=== PATIENT | female | born 1950 | race Caucasian/White ===

== ENCOUNTER 2019-06-19 18:38 | Observation (INO) | payer MEDICARE, SELFPAY ==
--- NOTE | ~2019-06-19 | CT_ITS ---
EXAMINATION: CT brain wo con DATE: 06/19/2019 20:39 INDICATION: Seizure TECHNIQUE: Computed tomography (CT) of the head was performed without intravenous contrast. Sagittal and coronal reconstructions were performed. The mA was adjusted according to patient size. Iterative reconstruction technique was employed. The dose-length product was 605.33 mGy-cm. COMPARISON: head CT dated 10/01/2017 FINDINGS: No acute intracranial hemorrhage, acute infarction or abnormal extra axial fluid collection. Ventricl es are normal and symmetric. No mass/mass effect. Changes of bilateral intraocular lens replacement. The orbits, paranasal sinuses and mastoid air cells are normal. Hyperostosis frontalis. IMPRESSION: 1. No acute intracranial process. Reviewed, dictated and finalized at location A. TAL WATCH ASSEMBLER
--- NOTE | ~2019-06-19 | CT_ITS ---
EXAMINATION: CT abdomen pelvis w con DATE: 06/19/2019 21:41 INDICATION: Elevated liver function tests. TECHNIQUE: Computed tomography (CT) of the abdomen and pelvis was performed with 100 mL Omnipaque-350 intravenous contrast. Automated exposure control and iterative reconstruction technique were employe d. The dose-length product was 522.13 mGy-cm. COMPARISON: 08/27/2015 FINDINGS: Minimal dependent atelectasis in the bilateral lower lobes. Heart size is normal. No pericardial or p leural effusion. Small to moderate sized sliding-type hiatal hernia. Focal hepatic steatosis at the l igamentum teres. No intra or extrahepatic biliary ductal dilation. Gallbladder, spleen and bilateral adrenal glands are normal. Mild fatty atrophy of the pancreas. 7.8 cm cyst in the mid right kidney. 1 -2 mm nonobstructing stone at the upper pole calyx of the right kidney. There are couple additional t iny less than 5 mm cyst at the upper poles of both kidneys. Mild sigmoid diverticulosis without adjac ent inflammatory change to suggest diverticulitis. No bowel obstruction or abnormal bowel wall thicke tamar. Likely tiny normal appendix. No pericecal inflammatory stranding to suggest acute appendicitis. Bladder, anteverted uterus and bilateral adnexa are normal. No free intraperitoneal gas or fluid. No pathologically enlarged abdominal or pelvic lymphadenopathy. Moderate to severe lumbar spondylosis. IMPRESSION: 1. One-2 mm nonobstructing right renal stone. 2. Mild sigmoid diverticulosis. Reviewed, dictated and finalized at location A. ER FACTORY WORKER
--- NOTE | ~2019-06-19 | MR_ITS ---
EXAMINATION: MR brain/brain stem wo/w con EXAM DATE: 06/20/2019 19:07 INDICATION: Altered mental status, movement disorder. TECHNIQUE: Magnetic resonance imaging (MRI) of the brain/brain stem obtained without contrast. Sagit eliazar T1, axial diffusion, gradient echo (T2*), T1, T2, FLAIR sequences obtained. Patient was then inj ected with 15 cc intravenous Multihance contrast. Axial and coronal postcontrast T1 weighted sequence s obtained. There is no prior study for comparison. FINDINGS: There are no areas of restricted diffusion to suggest acute infarction. There is no acute hemorrhage seen on the T2*, a hemosiderin sensitive sequence. No intraparenchymal brain mass lesion. Hyperostosis frontalis. There is periventricular and subcortical T2/FLAIR signal hyperintensity, n onspecific but probably related to small vessel ischemic disease (microangiopathy). There is promin ence of the sulci and ventricles related to cerebral atrophy. There are no extra-axial collections. Flow voids are seen in the cerebral arteries on the T2-weighted sequences consistent with their exp ected patency. The orbits are unremarkable. Soft tissue is unremarkable. IMPRESSION: 1. No acute intracranial findings. 2. Chronic age related findings. Reviewed, dictated and finalized at location A. ICATIONS ENGINEERING MANAGER
--- NOTE | ~2019-06-19 | XR_ITS ---
EXAMINATION: XR chest 2V DATE: 06/19/2019 20:51 INDICATION: Possible seizure presenting with transient alteration of awareness and involuntary shakin g TECHNIQUE: frontal and lateral views of the chest were obtained. COMPARISON: Chest radiograph dated 06/17/2017 FINDINGS: No significant change in opacities at the left lung base corresponding to a small left paracardial fa t pad and a small to moderate-sized hiatal hernia. No new airspace opacities, pulmonary edema, pleura l effusion or pneumothorax. Heart size is normal. Mild thoracic spondylosis. Chronic nonunited left c lavicle fracture. IMPRESSION: 1. No acute cardiopulmonary disease. 2. Small to moderate-sized hiatal hernia. Reviewed, dictated and finalized at location A. MASON
[2019-06-19 18:50] VITALS: BP 101/75; PULSE 119; RESP 22; TEMP 36.9; O2SAT 98
[2019-06-19 19:00] VITALS: BP 144/69; PULSE 105; RESP 21; O2SAT 99
--- NOTE | 2019-06-19 19:08 | ED.NEUROSD ---
HPI - Neuro Symptoms/Deficit General Chief Complaint: Neuro Symptoms/Deficit Stated Complaint: focal seizure Time Seen by Provider: 06/19/19 18:50 Source: patient and family Mode of arrival: EMS Limitations: clinical condition History of Present Illness HPI Narrative: A 69 y/o female pt presents to the ED, via EMS from home, with c/o suspected seizures. Pt's family states she called EMS because she noticed pt having seizure-like activity and being more confused than normal. Pt's family member states she was last at the pt's home in March and her house was clean, but when she returned for her routine visit today she notes patients home being unlivable d/t clogged toilets, dirty dishes, and trash scattered throughout the home. Family notes that upon her arrival to the pt's home, pt was confused, and was not oriented to date or time. Family states that she is unsure what the pt's normal seizure activity is, but notes that the pt does have a Hx of seizures. Family adds that the pt does have several children, but they live out of town and she is not able to get ahold of anyone with any information of her PMHx at this time. Pt states that she is unsure if she has had seizures in the past and denies taking any medications for her seizures. She states that she has difficulty standing up, but denies hitting her head recently. Pt states that the blue dye to her hands is d/t draino, and notes that the lacerations to her bilateral hands are from glass that was in the trash can. Pt denies taking her Clonazepam today. A complete HPI is limited d/t pt's clinical condition. Onset (ago): unknown Associated symptoms: confusion and other (seizure like activity, difficulty standing up) Related Data Home Medications Medication Instructions Recorded Confirmed Unable to Obtain Home Medications 06/19/19 06/19/19 Allergies Allergy/AdvReac Type Severity Reaction Status Date / Time poison kasi extract Allergy Mild RASH Verified 06/19/19 18:52 codeine Allergy Unknown Unknown Verified 06/19/19 18:52 Review of Systems Review of Systems: Narrative: A complete ROS is limited d/t pt's clinical condition. Musculoskeletal: Musculoskeletal: Reports other (difficulty standing) Integumentary/Breasts: Skin/Breast: Reports other (small lacerations to bilateral hands) Neurologic: Reports confusion and Reports seizure-like activity REPLACED BY [facility] Past Medical History Medical History (Updated 06/19/19 @ 23:27 by Spike Perez MD) Anxiety Arthritis Cataracts, bilateral Diverticulitis Hiatal hernia History of gastroesophageal reflux (GERD) Hypothyroidism Seizures Surgical History Surgical History (Updated 06/19/19 @ 22:28 by Tatyana Rey Spendji) History of appendectomy History of section History of tonsillectomy History of tubal ligation Family History Family History (Updated 12/15/13 @ 07:13 by DOCTOR UNKNOWN) Sibling Family history of multiple sclerosis Family history of malignant neoplasm of stomach Family history of lung cancer Father Cerebrovascular accident Mother Family history of heart disease in male family member before age 55 Social History Social History (Updated 06/19/19 @ 22:28 by Tatyana Rey Spendji) Smoking status: Never smoker Second hand tobacco smoke exposure: No Smoking end date: 04/20/1963 Alcohol intake: never Living arrangements: alone Gender identity (if verbalized by the patient): Female Exam Narrative: Exam Narrative: GENERAL: Ill-appearing, well-nourished, and in no acute distress. HEAD: Normocephalic, atraumatic. EYES: PERRLA and EOMI. ENT: Mucous membranes moist. CHEST: Clear to auscultation. No respiratory distress. HEART: Regular rate and rhythm. Normal peripheral pulses. ABDOMEN: Soft, nontender, nondistended EXTREMITIES: Normal range of motion. Normal strength. Magic marker covering fingers of the left hand and dried blood over the fingers of the right hand. SKIN:
--- NOTE | 2019-06-19 19:15 | PC.NURSE ---
assumed care of pt at this time. report from KRIS hill
[2019-06-19 19:49] LABS: Basophils Absolute Auto 0.1 K/mm3 (0.0-0.1); Basophils Percent Auto 0.3 % (0.2-1.2); Hematocrit 40.3 % (37.0-47.0); Hemoglobin 12.9 g/dL (12.0-15.0); Immature Granulocyte Absolute 0.09 K/mm3 (0.00-0.031); Immature Granulocyte Percent A 0.6 % (0-0.5); Lymphocytes Absolute Auto 1.37 K/mm3 (0.9-3.2); Lymphocytes Percent Auto 8.8 % (18.3-44.2); Mean Corpuscular Hemoglobin 28.9 pg (26-34); Mean Corpuscular Volume 90.2 fl (80-100); Mean Platelet Volume 11.4 fl (7.4-10.4); Monocytes Absolute Auto 1.1 K/mm3 (0.1-0.6); Neutrophils Absolute Auto 12.9 K/mm3 (1.3-6.7); Neutrophils Percent Auto 83.3 % (45.5-73.1); Platelet Count Result 332 k/mm3 (150-375); Red Blood Count 4.47 M/mm3 (4.2-5.4); Red Cell Distribution Width 13.9 % (11.5-14.5); White Blood Count 15.5 K/mm3 (4.5-10.0)
[2019-06-19 19:57] LABS: Alveolar/Arterial O2 Gradient 47.2 mmHg; Base Excess ABG -3.1 mEq/l (+/-2.0); Fractional Inspired Oxygen 21 %; HCO3 ABG 19.7 mEq/l (22.0-26.0); Oxygen Content ABG 18.2 %vol (16.0-22.0); Oxygen Saturation ABG 94.5 % (95.0-100.0); Oxyhemoglobin 93.6 % THb (90.0-100.0); PCO2 ABG 29.2 mmHg (35.0-45.0); PO2 ABG 67.6 mmHg (80.0-100.0); PO2 FiO2 Ratio Arterial Blood 3.22 %; Total Hemoglobin 13.8 g/dL (12.0-18.0); pH ABG 7.446 (7.350-7.450)
[2019-06-19 19:59] LABS: Device ROOM AIR; Modified Allen's Test Pass; Site Drawn RIGHT BRACHIAL
[2019-06-19 20:00] VITALS: BP 123/90; PULSE 98; RESP 23; TEMP 36.8; O2SAT 99
[2019-06-19 20:02] LABS: Acetaminophen < 10 ug/mL (10-30); Ammonia < 9 umol/L (9-30); Ethanol < 10 mg/dL (<10); Salicylate < 1.0 mg/dL (2-20)
[2019-06-19] MEDS: SODIUM CHLORIDE 0.9% IV 1,000 ML 999 ML IV CONT ×2 (20:17→22:09)
[2019-06-19 20:32] LABS: Add Urine Microscopic? YES; Appearance Urine Clear (Clear); Bilirubin Urine Negative (Negative); Blood Urine Negative (Negative); Color Urine Yellow (Yellow); Glucose Urine UA Negative (Negative); Hyaline Casts Urine 15-19 /lpf; Ketones Urine 2+ mg/dL (Negative); Leukocyte Esterase Ur Negative LEU/UL (Negative); Mucus Urine Few /lpf; Nitrate Urine Negative (Negative); Protein Urine 2+ mg/dL (Negative); RBC Urine 0-2 /hpf (0-2); Specific Grav Ur 1.027 (1.001-1.035); Squamous Epithelial Cell Urine Rare /hpf (Few); WBC Urine 0-3 /hpf
[2019-06-19 20:34] LABS: Lactic Acid Reflex 1.8 mmol/L (0.7-2.1)
[2019-06-19 20:45] LABS: Amphetamine Screen Urine Negative (Negative); Barbiturate Screen Urine Negative (Negative); Benzodiazepines Screen Urine Positive (Negative); Cannabinoid Screen Urine Negative (Negative); Cocaine Screen Urine Negative (Negative); Methadone Screen Urine Negative (Negative); Opiate Screen Urine Negative (Negative); Phencyclidine Screen Urine Negative (Negative)
[2019-06-19 21:00] VITALS: BP 159/74; PULSE 94; RESP 13; O2SAT 99
[2019-06-19 21:04] LABS: Alanine Aminotransferase 101 U/L (4-35); Albumin Level 4.7 g/dL (3.5-5.1); Alkaline Phosphatase 132 U/L (38-126); Aspartate Amino Transferase 161 U/L (14-36); Bilirubin,Total 0.7 mg/dL (0.2-1.3); Blood Urea Nitrogen 18 mg/dL (7-17); Calcium 9.5 mg/dL (8.4-10.2); Carbon Dioxide 22 mmol/L (22-30); Chloride 101 mmol/L (98-107); Estimated Glomerular Filt Rate > 60; Glucose 114 mg/dL (65-105); Potassium 3.2 mmol/L (3.4-5.0); Sodium 141 mmol/L (137-145)
[2019-06-19 21:13] LABS: INR 1.1; Prothrombin Time 14.1 Seconds (11.1-14.7)
[2019-06-19 21:35] LABS: Thyroid Stimulating Hormone 0.086 uIU/mL (0.465-4.680)
[2019-06-19 22:09] VITALS: BP 157/77; PULSE 100; RESP 13; O2SAT 99
[2019-06-19 23:56] VITALS: BP 171/88; PULSE 84; RESP 19; O2SAT 100
[2019-06-20] VITALS (10 sets, daily range): BP systolic 108–154; BP diastolic 53–73; PULSE 60–108; RESP 16–20; TEMP 36.6–37.5; O2SAT 95–100; BMI 28.8
--- NOTE | 2019-06-20 00:42 | PC.NURSE ---
3 MS RN Bette called stating it was documented on belongings list that pt had a wallet and $111 on her. They are unable to find the wallet or money. This RN called pt's son and POKayla Cruz to find out the name of who was with pt earlier. Son answered stating the visitor is pt's sister Odalys Nunez and can be reached at [phone]. Odalys stated she took her sisters wallet and $111. 3 MS RN called and notified of were pt's wallet is
--- NOTE | 2019-06-20 00:43 | PC.NURSE ---
When doing the belongings list pt stated she had a wallet with $111.00 in her purse. Pt refused to alllow me to check her purse to verify. It was documented that pt had Wallet and $111. on belongings list.
--- NOTE | 2019-06-20 01:21 | PM.IMHP ---
H&P: HPI History of Present Illness Chief complaint: Altered mental status, movement disorder Narrative: This is a 69 year old female with known seizure disorder and hypothyroidism who presented to the hospital with acute altered mental status. The patient's family members told ER physician that she called EMS because she noticed pt having seizure-like activity and being more confused than normal. Pt's family member states she was last at the pt's home in March and her house was clean, but when she returned for her routine visit today she notes patients home being unlivable d/t clogged toilets, dirty dishes, and trash scattered throughout the home. Family notes that upon her arrival to the pt's home, pt was confused, and was not oriented to date or time. On my encounter with the patient franchesca she is alone and her family has already gone home. The patient denies any significant symptoms at this time and is only oriented to herself. She denies any symptoms other than the intermittent diffuse body tremors that she is experiencing. She can't remember if she started any new medications and can't tell me any details about her medical history as she states she can't remember. She can't tell me the last time she had a seizure. She denies any other symptoms at this time. No other complaints. Review of Systems Review of Systems: All systems reviewed & are unremarkable except as noted in HPI and below PMFSH Past Medical History Medical History Anxiety Arthritis Cataracts, bilateral Diverticulitis Hiatal hernia History of gastroesophageal reflux (GERD) Hypothyroidism Seizures Surgical History Surgical History History of appendectomy History of section History of tonsillectomy History of tubal ligation Family History Family History Sibling Family history of multiple sclerosis Family history of malignant neoplasm of stomach Family history of lung cancer Father Cerebrovascular accident Mother Family history of heart disease in male family member before age 55 Social History Social History Smoking status: Unknown if ever smoked Second hand tobacco smoke exposure: No Smoking end date: 04/20/1963 Alcohol intake: unknown Substance use: unknown Substance use type: unknown Living arrangements: alone Gender identity (if verbalized by the patient): Female Spiritual care concerns: No Agree to blood products: Yes Meds Home Medications and Allergies Home Medications Medication Instructions Recorded Confirmed Type clonazepam [Klonopin] 0.5 mg PO HS PRN 06/20/19 06/20/19 History eslicarbazepine [Aptiom] 400 mg PO DAILY 06/20/19 06/20/19 History famotidine 40 mg PO DAILY 06/20/19 06/20/19 History levothyroxine [Synthroid] 125 mcg PO DAILY 06/20/19 06/20/19 History pantoprazole 40 mg PO DAILY 06/20/19 06/20/19 History Allergies Allergy/AdvReac Type Severity Reaction Status Date / Time poison kasi extract Allergy Mild RASH Verified 06/20/19 02:04 codeine Allergy Unknown Unknown Verified 06/20/19 02:04 Vital Signs Vital Signs - 24 hr 06/19/19 18:50 06/19/19 19:00 06/19/19 20:00 Temperature 36.9 C 36.8 C Pulse Rate 119 H 105 H 98 Respiratory Rate 22 H 21 H 23 H Blood Pressure 101/75 144/69 H 123/90 Pulse Oximetry 98 99 99 06/19/19 21:00 06/19/19 22:09 06/19/19 23:56 Temperature Pulse Rate 94 100 84 Respiratory Rate 13 13 19 Blood Pressure 159/74 H 157/77 H 171/88 H Pulse Oximetry 99 99 100 06/20/19 00:00 Temperature 37.5 C Pulse Rate 108 H Respiratory Rate 20 Blood Pressure 154/73 H Pulse Oximetry 95 Exam Const: General: cooperative, alert, awake, confusion and other (sporadict diffuse resting tremor ++) Nutritional Appearance: well nourished [place]
[2019-06-20] MEDS: LACTATED RINGERS 1,000 ML 125 ML IV CONT ×2 (04:29→13:23)
--- NOTE | 2019-06-20 05:42 | ADMGEN ---
This patient, Candice Canchola, was admitted to [facility] Surg Room 333-01. Patient/family oriented to hospital policies and general routines including ID bracelet, bed and alarms, visiting hours, pain management, procedures, bathroom and other care routines, personal items, smoking policy, room service/diet, and visiting hours. Valuables list has been completed. Information on how to activate the Rapid Response Team has been discussed. Patient/Family are encouraged to report perceived risks to care and to ask questions if they do not understand what they are told or what they should do.
[2019-06-20 10:51] LABS: Alanine Aminotransferase 87 U/L (4-35); Albumin Level 4.2 g/dL (3.5-5.1); Alkaline Phosphatase 113 U/L (38-126); Aspartate Amino Transferase 119 U/L (14-36); Bilirubin,Total 0.8 mg/dL (0.2-1.3); Blood Urea Nitrogen 10 mg/dL (7-17); Calcium 8.8 mg/dL (8.4-10.2); Carbon Dioxide 24 mmol/L (22-30); Chloride 105 mmol/L (98-107); Estimated CRCL calculation 87 ml/min; Estimated Glomerular Filt Rate > 60; Glucose 174 mg/dL (65-105); Magnesium 1.9 mg/dL (1.6-2.3); Phosphorus 2.1 mg/dL (2.5-4.5); Potassium 2.8 mmol/L (3.4-5.0); Sodium 138 mmol/L (137-145)
[2019-06-20 10:55] LABS: Basophils Absolute Auto 0.1 K/mm3 (0.0-0.1); Basophils Percent Auto 0.7 % (0.2-1.2); Eosinophils Absolute Auto 0.1 K/mm3 (0-0.3); Eosinophils Percent Auto 0.9 % (0-4.4); Hematocrit 39.6 % (37.0-47.0); Hemoglobin 12.5 g/dL (12.0-15.0); Immature Granulocyte Absolute 0.04 K/mm3 (0.00-0.031); Immature Granulocyte Percent A 0.4 % (0-0.5); Lymphocytes Absolute Auto 2.18 K/mm3 (0.9-3.2); Mean Corpuscular HGB Conc 31.6 g/dl (32-36); Mean Corpuscular Hemoglobin 28.3 pg (26-34); Mean Corpuscular Volume 89.8 fl (80-100); Mean Platelet Volume 11.7 fl (7.4-10.4); Monocytes Absolute Auto 0.8 K/mm3 (0.1-0.6); Monocytes Percent Auto 7.8 % (2.6-8.5); Neutrophils Absolute Auto 7.2 K/mm3 (1.3-6.7); Neutrophils Percent Auto 69.2 % (45.5-73.1); Platelet Count Result 300 k/mm3 (150-375); Red Blood Count 4.41 M/mm3 (4.2-5.4); Red Cell Distribution Width 13.9 % (11.5-14.5); White Blood Count 10.4 K/mm3 (4.5-10.0)
--- NOTE | 2019-06-20 11:30 | NEURO_ITS ---
TEST: ELECTROENCEPHALOGRAM DIAGNOSIS: ALTERED MENTAL STATUS; MOVEMENT DISORDER PATIENT NUMBER: [id number] EEG NUMBER: [id number] RECORDING DATE: 06/20/19 CLINICAL HISTORY: Patient is very restless. Refused to shut eyes throughout the whole tracing and couldn?t lie still. Does not remember why she is here. CONDITION OF RECORDING: Awake EEG DESCRIPTION: Basic resting occipital frequency consists of very minimal amount of low voltage alpha mixed with large amount of very low voltage beta. During drowsiness low voltage beta activity is seen diffusely mixed with waxing and waning posterior alpha rhythms. Multiple movement, eye movement and muscle artifacts are noted throughout the tracing. Hyperventilation and photic stimulation were not done. Nonparoxysmal. Nonfocal. Nonlateralizing. IMPRESSION: No significant abnormalities noted. MTDD
--- NOTE | 2019-06-20 13:09 | CONS_ITS ---
DATE OF CONSULTATION: HISTORY OF PRESENT ILLNESS: This 69-year-old right-handed female has been admitted to [facility] through the emergency room with the complaint of acute changes in the mental status. The patient's family members told the emergency room physician that she called EMS because she noted the patient was having seizure-like activity and was increasingly more confused. She was last at the patient's home in March and her house was clean, but when she returned for her routine visit today she noted the patient's home being unlivable, clogged toilets, dirty dishes, and trashes scattered throughout the home. Upon her arrival to the patient's home, she was notedly confused and was not oriented to date or time. The patient denied any significant symptom to initial physician in the hospital. Other family members were gone. She was only oriented to herself. She was noted to have intermittent diffuse tremors. She was not sure that she has started any new medications or not. As per the information available from sister who happened to be this morning, she has ongoing history of seizure disorder for the last 3 years. PAST MEDICAL HISTORY: The patient does have ongoing history of anxiety, arthritis, diverticulitis, hiatal hernia, GERD, hypothyroidism, and seizures. PAST SURGICAL HISTORY: In the past, she has undergone appendectomy, , tonsillectomy, tubal ligation. FAMILY HISTORY: She has family history of multiple sclerosis, malignant neoplasm of the stomach and carcinoma of the lung. SOCIAL HISTORY: The patient herself is not a smoker, not a drinker, though it is not clear. MEDICATIONS: The patient was taking multiple medications at the time of admission to the hospital, which included the clonazepam, eslicarbazepine that is Aptiom, famotidine, Synthroid, and pantoprazole. ALLERGIES: SHE IS REPORTEDLY ALLERGIC TO POISON HEIDI AND CODEINE. PHYSICAL EXAMINATION: VITAL SIGNS: Evaluation up until now revealed her to be afebrile with pulse of 119, which has come down to 98, respiration 23, blood pressure 101/75, pulse ox 98%. GENERAL: Revealed her to be awake, alert, cooperative, not very alert, somewhat confused intermittently in answering the question and while being observed by the physician she was noted to have intermittent jerking of the upper and lower extremities, lasting for a few seconds, though still she was able to follow the verbal commands when asked to. HEENT: Head was normocephalic with no cranial bruit. Ears, nose, throat exam was normal. NECK: Supple with no cervical bruit. No thyromegaly. No lymphadenopathy. HEART: Regular. LUNGS: Clear. ABDOMEN: Soft. NEUROLOGICAL: She was awake, alert, was able to follow the verbal commands. Speech was of low volume, not very spontaneous, but not dysarthric and not dysphasic. She was able to follow the instructions when asked by the physician. Pupils were round, regular. [place] of vision full. Extraocular muscles full. Face symmetrical. Tongue midline. Motor examination revealed her to have no drift of 1 side or other side. Reflexes were symmetrical but sluggish and plantar responses were questionably up. There was no evidence of gross sensory deficit. No evidence of gross cerebellar deficit. IMAGING: Evaluation up until now revealed her to have negative chest x-ray except a small to moderate-sized hiatal hernia. Negative CT scan of the head. Negative CT scan of the abdomen except the mild to moderate hiatal hernia with approximately a 3rd of the stomach in the thorax and mild distal esophageal wall thickening. IMPRESSION: Rule out the possibility of the focal seizures in addition to possible movement disorder. PLAN: Obtain the EEG and MRI of the brain and further recomme
[2019-06-20 13:12] LABS: Creatine Kinase 8547 U/L (30-135)
[2019-06-20] MEDS: PANTOPRAZOLE 40 MG TABLET PO (13:24)
[2019-06-20] MEDS: POTASSIUM CHLORIDE 20 MEQ TABLET 40 MEQ PO (13:24)
[2019-06-20] MEDS: LEVOTHYROXINE SODIUM 125 MCG TABLET PO (13:24)
[2019-06-20] MEDS: FAMOTIDINE 20 MG TABLET 40 MG PO (13:25)
[2019-06-20] MEDS: levETIRAcetam 1000MG/NACL100ML 1,000 MG/100 ML BAG 400 MG IVPB ×2 (15:49→16:20)
--- NOTE | 2019-06-20 17:25 | PM.TDS ---
Transfer Discharge Sum: Prov Provider Date of admission: 06/19/19 23:09 Primary care physician: Ana Lilia Hoffmann, MD Admitting clinician: Eleno Addison MD Consults: 06/20/19 08:38 Consult to Physician Routine Comment: consulted dr henriquez at 0910(ct,) Consulting Provider: Jackson Henriquez directory assistance operator/MD group to consult: Neurology Reason for consultation: altered mental status; seizures Has provider been notified: Yes DS: Diagnosis Discharge Diagnosis (1) Altered mental status: Qualifiers: Altered mental status type: unspecified Qualified Code(s): R41.82 - Altered mental status, unspecified Code(s): R41.82 - Altered mental status, unspecified Status: Acute Assessment and Plan: Date of Service 06/20/19 Ms. Canchola is a 69yo F with history of known seizure disorder and hypothyroidism who presented to the emergency department with acute altered mental status. The patient's family members at the bedside note that EMS was called because she noticed the patient having seizure-like activity and becoming more confused than normal, although many details are quite vague. The patient is known to live at home by herself, and her sister at the bedside reports that when she went to visit the patient today, noted the patient's home to be unlivable due to clogged toilet, dirty dishes, and trash scattered throughout the home. Family members noted this was not normal for her. The patient has been having intermittent diffuse body tremors today. She cannot tell me how long this movement has been going on. Family members thought that she probably had not taken her seizure medication, eslicarbazepine, over the last few days. The patient answers I do not know or I do not remember to most questions asked. Her eslicarbazepine is nonformulary here and her family was not able to bring it from the patient's house. The patient's son, Niko, expressed concerns regarding his mother and notes that she has followed with a neurologist at [facility] in the past. Family requests the patient be transferred to [facility] for further management of her acute altered mental status and seizure disorder. Ed reports he does not remember the name of the patient's established neurologist at [facility] but the transfer line pulled up her records and noted she had been seen by Dr Moshe Lopez in the past. Discussed case with Dr. Jodi Barraza at [facility] who accepts the patient in transfer and requests the patient receive a loading dose of 2g IV Keppra as we are waiting on bed placement. I have discussed these updates with our neurologist, Dr Henriquez, as well. WBC 15,500 on arrival, improved to 10,400 this morning. Potassium 2.8 this morning and replaced with 40 mEq oral and 40 mEq IV potassium supplementation. Phosphorus 2.1 and orally replaced. AST elevated to 119, ALT 87. Creatine kinase elevated to 8547 and she remains on IV hydration lactated Ringer's at 125 mL/hr. CT brain without contrast revealed no acute intracranial process. MRI brain ordered but has not been obtained yet. Chest x-ray reveals no acute cardiopulmonary disease, small to moderate sized hiatal hernia. CT abdomen/pelvis was obtained due to transaminitis and shows one 2mm nonobstructing right renal stone with mild sigmoid diverticulosis. Imaging reports and disc accompany the patient in transfer. Patient is hemodynamically stable for transfer to [facility] for further management of acute altered mental status and seizure disorder with reportedly new extrapyramidal movements. Last Vital Signs Temp 98.7 F 06/20/19 14:00 Pulse 77 06/20/19 14:00 Resp 18 06/20/19 14:00 BP 135/61 06/20/19 14:00 Pulse Ox 99 06/20/19 14:00 (2) Seizures: Code(s): R56.9 - Unspecified convulsions Status: Chronic Assessment and Plan: Patient is on eslicarbazepine; unclear if she has been taking this at home. Loading dose of [address] Ke[address] per Dr. Barraza's recommendation.\ C
[2019-06-20 19:55] LABS: Potassium 3.7 mmol/L (3.4-5.0)
[2019-06-20] MEDS: POTASSIUM PHOS/SODIUM PHOS 250 MG TABLET PO (20:23)
--- NOTE | 2019-06-20 22:15 | PC.NURSE ---
Report called to Leah PONCE @ [facility].
[2019-06-21] VITALS: PULSE 65
--- NOTE | 2019-06-21 00:45 | PC.NURSE ---
Discharged to [facility] with all personal belongings. Transported per ambulance via stretcher with IV access remaining in place and IVF infusion cont'd.
== END 2019-06-20 23:30 | disposition short-term general hospital (02) ==
LOC: ANHED 23:27 → ANH3MEDSUR 23:35
PROVIDERS: Physician Assistant; Admitting Provider Family Medicine; Emergency Provider Emergency Medicine; PCP Family Medicine; Visit Provider Family Medicine
DX: R41.82 Altered mental status, unspecified (principal); R56.9 Unspecified convulsions; D72.829 Elevated white blood cell count, unspecified; G25.9 Extrapyramidal and movement disorder, unspecified; R74.0 Nonspecific elevation of levels of transaminase and lactic acid dehydrogenase [LDH]; E87.6 Hypokalemia; F41.9 Anxiety disorder, unspecified; E03.9 Hypothyroidism, unspecified; K21.9 Gastro-esophageal reflux disease without esophagitis; K44.9 Diaphragmatic hernia without obstruction or gangrene; M19.90 Unspecified osteoarthritis, unspecified site; Z79.899 Other long term (current) drug therapy
CPT/HCPCS: 36415; 36600; 51701; 70450; 70553; 71046; 74177; 80053; 80307; 81001; 82140; 82550; 82805; 83605; 83735; 84100; 84132; 84439; 84443; 85025; 85610; 85730; 95816; 96360; 96361; 96365; 96366; 96375; 96376; 97161; 97165; 99285; A9270; A9577; G0378; J1953; J3480; J7030; J7120; Q9967

== ENCOUNTER 2019-07-29 12:01 | Outpatient (CLI) | payer MEDICARE, SELFPAY ==
--- NOTE | ~2019-07-29 | XR_ITS ---
EXAMINATION: XR hand LT min 3V DATE: 07/29/2019 13:28 INDICATION: Left hand pain. TECHNIQUE: 3 views of left hand were obtained. COMPARISON: None. FINDINGS: Bone alignment is normal. No fracture. There is mild osteoarthritis of first interphalangea l joint, second through fifth distal interphalangeal joints, and third and fifth metacarpophalangeal joints. IMPRESSION: 1. Mild polyarticular osteoarthritis. Reviewed, dictated and finalized at location A.
--- NOTE | ~2019-07-29 | MMUS_ITS ---
EXAMINATION: MM diagnostic clay BI w ching, US axilla BI HISTORY: Right axillary lump for one month TECHNIQUE: ML, MLO and cc 3-D tomosynthesis images of both breasts were performed and synthetic 2-D i mages were generated. Bilateral rotated lateral cc views. CAD analysis was submitted and interpreted. High resolution left axillary ultrasound was performed. COMPARISON: 10/16/2011 bilateral digital screening mammogram BREAST PARENCHYMAL COMPOSITION: There are scattered areas of fibroglandular density. FINDINGS: MAMMOGRAPHIC FINDINGS: Bilateral benign calcifications are noted including some prominent posterior bilateral calcifications likely related to the former breast implants. No suspicious mass or architectural distortion, malign ant calcification, skin thickening or retraction or significant new or developing density is detected . ULTRASOUND: There is no evidence of focal abnormal solid or cystic lesion or abnormal shadowing in the left axill gill area. IMPRESSION: 1. No mammographic evidence of malignancy 2. Routine annual mammographic screening is recommended. BI-RADS Category 2: Benign finding(s). Reviewed, dictated and finalized at location A. IMPRESSION: 1. No mammographic evidence of malignancy 2. Routine annual mammographic screening is recommended. BI-RADS Category 2: Benign finding(s).
--- NOTE | ~2019-07-29 | XR_ITS ---
EXAMINATION: XR wrist LT min 3V DATE: 07/29/2019 13:28 INDICATION: Left hand pain. TECHNIQUE: 4 views of left wrist were obtained. COMPARISON: None. FINDINGS: Bone alignment is normal. No fracture. Joint spaces are well maintained. IMPRESSION: 1. Normal left wrist. Reviewed, dictated and finalized at location A. IMPRESSION: 1. Normal left wrist.
[2019-07-29 14:30] LABS: Basophils Absolute Auto 0.1 K/mm3 (0.0-0.1); Eosinophils Absolute Auto 0.3 K/mm3 (0-0.3); Eosinophils Percent Auto 4.5 % (0-4.4); Hematocrit 38.3 % (37.0-47.0); Hemoglobin 11.8 g/dL (12.0-15.0); Immature Granulocyte Absolute 0.02 K/mm3 (0.00-0.031); Immature Granulocyte Percent A 0.3 % (0-0.5); Lymphocytes Absolute Auto 1.61 K/mm3 (0.9-3.2); Lymphocytes Percent Auto 23.9 % (18.3-44.2); Mean Corpuscular HGB Conc 30.8 g/dl (32-36); Mean Corpuscular Hemoglobin 28.2 pg (26-34); Mean Corpuscular Volume 91.4 fl (80-100); Mean Platelet Volume 11.4 fl (7.4-10.4); Monocytes Absolute Auto 0.5 K/mm3 (0.1-0.6); Monocytes Percent Auto 7.1 % (2.6-8.5); Neutrophils Absolute Auto 4.3 K/mm3 (1.3-6.7); Neutrophils Percent Auto 63.2 % (45.5-73.1); Platelet Count Result 268 k/mm3 (150-375); Red Blood Count 4.19 M/mm3 (4.2-5.4); Red Cell Distribution Width 15.3 % (11.5-14.5); White Blood Count 6.7 K/mm3 (4.5-10.0)
[2019-07-29 14:50] LABS: Alanine Aminotransferase 22 U/L (4-35); Albumin Level 4.1 g/dL (3.5-5.1); Alkaline Phosphatase 97 U/L (38-126); Aspartate Amino Transferase 30 U/L (14-36); Bilirubin,Total 0.2 mg/dL (0.2-1.3); Blood Urea Nitrogen 15 mg/dL (7-17); Calcium 9.1 mg/dL (8.4-10.2); Carbon Dioxide 26 mmol/L (22-30); Chloride 106 mmol/L (98-107); Cholesterol 160 mg/dL (0-200); Estimated Glomerular Filt Rate > 60; Glucose 107 mg/dL (65-105); HDL Direct 57 mg/dL; Potassium 4.4 mmol/L (3.4-5.0); Sodium 139 mmol/L (137-145); Triglycerides 115 mg/dL (<150)
[2019-07-29 15:00] LABS: LDL Cholesterol Direct 71 mg/dL
[2019-07-29 15:19] LABS: Thyroid Stimulating Hormone < 0.015 uIU/mL (0.465-4.680)
[2019-07-29 15:55] LABS: Free T4 Free Thyroxine 1.56 ng/mL (0.78-2.19); Vitamin D 25 Hydroxy 45.3 ng/mL
[2019-07-29 17:05] LABS: Iron 57 ug/dL (37-170); Percent Iron Saturation 21 % (20-50)
[2019-07-29 17:41] LABS: Folic Acid 15.3 ng/mL (2.76->20)
== END 2019-07-29 12:02 | disposition home or self-care (01) ==
PROVIDERS: PCP Family Medicine; Visit Provider Family Medicine
DX: R22.2 Localized swelling, mass and lump, trunk (principal); M79.642 Pain in left hand; E78.5 Hyperlipidemia, unspecified; Z79.899 Other long term (current) drug therapy; E06.3 Autoimmune thyroiditis; R63.5 Abnormal weight gain; R53.83 Other fatigue; E55.9 Vitamin D deficiency, unspecified; D61.9 Aplastic anemia, unspecified; E61.1 Iron deficiency; M19.042 Primary osteoarthritis, left hand; R92.8 Other abnormal and inconclusive findings on diagnostic imaging of breast
CPT/HCPCS: 36415; 73110; 73130; 76882; 77062; 77066; 80048; 80061; 80076; 82306; 82607; 82728; 82746; 83540; 83550; 84439; 84443; 85025; G0279

== ENCOUNTER 2022-05-08 11:24 | Outpatient (CLI) | payer MEDICARE, MEDICAID, SELFPAY ==
--- NOTE | ~2022-05-08 | XR_ITS ---
XR knee LT 3V DATE: 05/08/2022 11:56 INDICATION: Bilateral knee pain. Recent fall. TECHNIQUE: [place], lateral and standing AP views COMPARISON: None FINDINGS: Mild osteopenia. No fracture or dislocation or joint effusion. No periosteal reaction or dionne ne destruction. No radiopaque intra-articular loose body or chondrocalcinosis. Knee joint spaces are relatively preserved. IMPRESSION: Mild osteopenia. Reviewed, dictated and finalized at location L. BOSS IMPRESSION: Mild osteopenia.
--- NOTE | ~2022-05-08 | XR_ITS ---
XR knee RT 3V DATE: 05/08/2022 11:56 INDICATION: Bilateral knee pain TECHNIQUE: [place], lateral and standing AP views COMPARISON: None FINDINGS: Mild osteopenia. There is superior pole patellar enthesopathy at the quadriceps tendon insertion. No fracture, dislocation or joint effusion. No radiopaque intra-articular loose body or chondrocalcin osis. Knee joint spaces appear relatively preserved. IMPRESSION: Mild osteopenia Superior pole patellar enthesopathy Reviewed, dictated and finalized at location L. N CLEANER
== END 2022-05-08 11:25 | disposition home or self-care (01) ==
LOC: ANHIMG 11:32
PROVIDERS: PCP Family Medicine; Visit Provider Physician Assistant
DX: M85.861 Other specified disorders of bone density and structure, right lower leg (principal); M85.862 Other specified disorders of bone density and structure, left lower leg
CPT/HCPCS: 73562

== ENCOUNTER 2023-01-12 15:50 | Outpatient (CLI) | payer MEDICARE, MEDICAID, SELFPAY ==
--- NOTE | ~2023-01-12 | XR_ITS ---
XR lumbar spine 2-3V 01/12/2023 16:24 Indication: Low back pain Procedure: 3 views lumbar spine Comparison: No prior studies for comparison. Findings: Mild levoscoliosis. There is disc narrowing at L3-4, L4-5 and L5-S1. There is moderate mult ilevel facet hypertrophy. No evidence for spondylolisthesis. Pedicles intact. Sacral foramen are symm etric. No fracture or traumatic malalignment. Impression: 1: Severe lumbar spondylosis with levoscoliosis. Reviewed, dictated and finalized at location L. Impression: 1: Severe lumbar spondylosis with levoscoliosis.
--- NOTE | ~2023-01-12 | XR_ITS ---
EXAMINATION: XR hip BI 2V w AP pelvis DATE: 01/12/2023 16:24 INDICATION: Bilateral hip pain. TECHNIQUE: An anteroposterior view of the pelvis and 2 views of each hip were obtained. COMPARISON: None. FINDINGS: Bone alignment is normal. No fracture. There is severe lumbar spondylosis. There is mild os teoarthrosis of the hips. IMPRESSION: 1. Mild osteoarthritis of the hips. Reviewed, dictated and finalized at location A.
--- NOTE | ~2023-01-12 | XR_ITS ---
EXAMINATION: XR sacrum coccyx min 2V DATE: 01/12/2023 16:24 INDICATION: Bilateral hip pain. Collapsed vertebra. TECHNIQUE: 3 views of the sacrum and coccyx were obtained. COMPARISON: None. FINDINGS: Bone alignment is normal. No fracture. There is mild osteoarthritis of the sacroiliac joint s. Osteitis pubis is noted. There is severe lumbar spondylosis. IMPRESSION: 1. Mild osteoarthritis of the sacroiliac joints. Reviewed, dictated and finalized at location A.
== END 2023-01-12 15:51 | disposition home or self-care (01) ==
LOC: ANHIMG 15:55
PROVIDERS: PCP Family Medicine; Visit Provider Family Medicine
DX: M48.50XA Collapsed vertebra, not elsewhere classified, site unspecified, initial encounter for fracture (principal); M16.0 Bilateral primary osteoarthritis of hip; M53.3 Sacrococcygeal disorders, not elsewhere classified
CPT/HCPCS: 72100; 72220; 73521

== ENCOUNTER 2023-02-06 13:11 | Outpatient (CLI) | payer MEDICARE, MEDICAID, SELFPAY ==
--- NOTE | ~2023-02-06 | MR_ITS ---
MRI of the lumbar spine Clinical History: Spondylosis Technique: Axial T2-weighted images, and sagittal T1-weighted, T2-weighted, and T2 fat-sat images wer e acquired. Findings: There is no fracture or subluxation of the lumbar spine. Vertebral bodies maintain normal h eight and alignment. No suspicious bone marrow signal abnormality seen. At L1-L2, there is no significant disc bulge or herniation. There is mild facet arthropathy. No spina l canal stenosis or neural foraminal narrowing. At L2-L3, there is minimal disc bulge with mild to moderate facet arthropathy. No central canal steno sis or neural foraminal narrowing. At L3-L4, there is advanced degenerative disc narrowing. There is disc bulge and severe facet arthrop athy, with minimal central canal stenosis. There is mild to moderate left neural foraminal narrowing, and moderate to severe right neural foraminal narrowing. At L4-L5, there is moderate degenerative disc narrowing. There is minimal disc bulge and mild facet a rthropathy. No central canal stenosis. There is minimal bilateral neural foraminal narrowing. At L5-S1, there is minimal disc bulge and mild to moderate facet arthropathy. No central canal stenos is. There is mild bilateral neural foraminal narrowing. Paravertebral soft tissues are unremarkable. Impression: Moderate to advanced degenerative spondylosis at L3-L4, as detailed above. Mild degenerative change in the remainder of the lumbar spine, as above. Reviewed, dictated and finalized at [facility]. Impression: Moderate to advanced degenerative spondylosis at L3-L4, as detailed above. Mild degenerative change in the remainder of the lumbar spine, as above.
== END 2023-02-06 13:12 | disposition home or self-care (01) ==
PROVIDERS: PCP Family Medicine; Visit Provider Family Medicine
DX: M47.896 Other spondylosis, lumbar region (principal)
CPT/HCPCS: 72148

== ENCOUNTER 2024-09-21 10:15 | Outpatient (CLI) | payer MEDICARE, MEDICAID, SELFPAY ==
--- OUTSIDE RECORDS SUMMARY | 2024-09-21 10:26 | XMS_ITS | Encounter Summary ---
Author Organization [facility] Address [address] [facility] [place] [address] Care Team Providers Care Detail Supervisor Name Role Phone Lashanda Garrison MD Primary Care Provider [phone] Reason for Visit * Reason Onset Date Comments MEDICATION REFILL 03/05/2023 Encounter Details Date Type Department Care Team (Late st Contact Info) Description 03/05/2023 Refill [facility] - Neurology [address] [place] [phone] Moshe Lopez MD [address] [place] [phone] MEDICATION REFILL Social History Tobacco Use Types Packs/Day Years Used Date Smoking Tobacco: Never Smokeless Tobacco: Never Alcohol Use Standard Drinks/Week Comments Not Currently 0 (1 standard drink = 0.6 oz pur e alcohol) occasional AUDIT-C Answer Date Recorded Q1: How often do you have a drink containing alcohol? Never 11/13/2022 Q2: How many drinks containi ng alcohol do you have on a typical day when you are drinking? Patient does not drink Q3: How often do you have si x or more drinks on one occasion? Never 11/13/2022 Overall Financial Resource Strain (CARDIA) Answe r Date Recorded How hard is it for you to pa y for the very basics like food, housing, medical care, and heating? Not hard at all 09/20/2022 [facility] [place] of Occupat ional Health - Occupational Stress Questionnaire Answer Date Recorded Do you feel stress - tense, restless, nervous, or anxious, or unable to sleep at night because your mind is troubled all the time - these days? Not at all 09/20/2022 Hunger Vital Sign Answer Date Recorded Within the past 12 months, y ou worried that your food would run out before you got the money to buy more. Never true 09/21/19 23 Within the past 12 months, t he food you bought just didn't last and you didn't have money to get more. Never true 09/20/2022 PRAPARE - Transportation Answer Date Re corded In the past 12 months, has l ack of transportation kept you from medical appointments or from getting medications? No 06/2022 In the past 12 months, has l ack of transportation kept you from meetings, work, or from getting things needed for daily living? No 09/20/2022 Housing Stability Vital Sign Answer Girma e Recorded In the last 12 months, was t here a time when you were not able to pay the mortgage or rent on time? No 09/20/2022 In the last 12 months, how many places have you lived? 1 09/20/2022 In the last 12 months, was t here a time when you did not have a steady place to sleep or slept in a chcf (including now)? 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 Answer Date of Assessment Author No 09/20/2022 10:08 PM CDT Maria Luisa Weems RN * Is person blind or have serious difficulty seeing? Answer Date of Assessment Author No 09/20/2022 10:08 PM CDT Maria Luisa Weems RN * Does person have serious difficulty walking/climbing stairs? Answer Date of Assessment Author No 09/20/2022 10:08 PM CDT Maria Luisa Weems RN * Does person have difficulty dressing/bathing? Answer Date of Assessment Author No 09/20/2022 10:08 PM CDT Maria Luisa Weems RN * Does person have difficulty doing errands alone? Answer Date of Assessment Author No 09/20/2022 10:08 PM CDT Maria Luisa Weems RN documented as of this encounter Mental Status * Does person have difficulty concentrating/remembering/making decisions? Answer Entry Date Author No 09/20/2022 10:08 PM CDT Maria Luisa Weems RN documented in this encounter Miscellaneous Notes * Telephone Encounter - Dane Olearya - 03/05/2023 9:25 AM CST Refill Request The pt is saying that she is completely out of medication as of today. Candice Canchola KAYKAY: NOV due: NOV scheduled: LRF: 11/26/2022 Qty Disp: 30 # of refills: 5 Allergies: Allergies Allergen Reactions ??? Extract Of Poison Cass Anaphylaxis Pended Medication Order: Requested Prescriptions Pending Prescriptions Disp Refills ??? clonazePAM (KlonoPIN) 0.5 MG tablet 30 tablet 5 Sig: Take 1 (one) tablet by mouth at bedtime TION WARFARE SYSTEMS OPERATOR documented in this encounter Plan of Treatment Upcoming Encounters Date Type Department Care Team (Late st Contact Info) Description 11/02/2024 1:00 PM CDT Office Visit [facility] - Neurology [address] [place] [address], [place] [phone] Sebas Lopez MD [address] [place] [address] [place] [address] Moshe Lopez MD [address] [place] [address] [place] [phone] documented as of this encounter Visit Diagnoses Diagnosis Localization-related (focal) (partial) 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, not intractable, with status epilepticus (HCC) documented in this encounter Care Teams Detail Supervisor Relationship Specialty Start Date End Date Lashanda Garrison MD [address] [place] [phone] PCP - General Family Medicine 09/16/22 documented as of this encounter
--- OUTSIDE RECORDS SUMMARY | 2024-09-21 10:26 | XMS_ITS | Encounter Summary ---
Author Organization [facility] Address [address] [facility] [place] [address] Care Team Providers Care Machine Inspector Name Role Phone Lashanda Garrison MD Primary Care Provider [phone] Encounter Details Date Type Department Care Team (Late st Contact Info) Description 12/02/2022 Telephone [facility] - Pulmonology [address] [place] [address], [place] [phone] Eleno Everett MD [address] [place] [address] DIV OF PULMONARY/[place] [address] Social History Tobacco Use Types Packs/Day Years [...] and heating? Not hard at all 09/20/2022 [facility] [place] of Occupat ional Health - Occupational Stress [...] place to sleep or slept in a care home (including now)? 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 Eleno Everett Reason for call: Ms. Candice Canchola said she spoke to Dr. Everett yesterday re her 12/10/22appt. Dr. Everett said the 12/10/22 appt was too soon and he wanted to allow nodule to grow, he then stated he was going to schedule her 02/26/2023, when she looked at her MyChart she saw the appt hasbeen scheduled for 03/26/23. She was concerned since she was told 02/26/23. Perhaps this was what was available, now she is concerned the 03/26/23 is out too far? I noticed the two tests are scheduled for the same day 03/26/23. Additionally, she asked, is her CT Scan with radiation. Please advise. She just has concerns since she was told 02/26/23.. Patient Call Back number: [phone] documented in this encounter Plan of Treatment Upcoming Encounters Date Type Department Care Team (Late st Contact Info) Description 11/02/2024 1:00 PM CDT Office Visit [facility] - Neurology [address] [place] [address], [place] [phone] Sebas Lopez MD [address] [place] [address] [place] [address] Moshe Lopez MD [address] [place] [address] [place] [address] documented as of this encounter Visit Diagnoses Not on filedocumented in this encounter Care Teams Machine Inspector Relationship Specialty Start Date End Date Lashanda Garrison MD [address] [place] [address] [place] [facility] [phone] PCP - General Family Medicine 09/16/22 documented as of this encounter
--- OUTSIDE RECORDS SUMMARY | 2024-09-21 10:26 | XMS_ITS | Encounter Summary ---
Author Organization [facility] Address [address] [facility] [place] [address] Care Team Providers Care Elevator Supervisor Name Role Phone Lashanda Garrison MD Primary Care Provider [phone] Reason for Visit * Reason Onset Date Comments MEDICATION REFILL 09/14/2024 Encounter Details Date Type Department Care Team (Late st Contact Info) Description 09/14/2024 Refill [facility] - Pulmonology [address] [facility], [place] [address] Kirill Mae MD [address] [facility] PULMONARY DISEASE/[place] [address] MEDICATION REFILL Social History Tobacco Use [...] and heating? Not hard at all 09/20/2022 [facility] [place] of Occupat ional Health - Occupational Stress [...] place to sleep or slept in a usp (including now)? 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 Answer Date of Assessment Author No 06/26/2023 10:51 AM Marleni Petty RN * Is person blind or have serious difficulty seeing? Answer Date of Assessment Author No 06/26/2023 10:51 AM Marleni Petty RN * Does person have serious difficulty walking/climbing stairs? Answer Date of Assessment Author No 06/26/2023 10:51 AM Marleni Petty RN * Does person have difficulty dressing/bathing? Answer Date of Assessment Author No 06/26/2023 10:51 AM Marleni Petty RN * Does person have difficulty doing errands alone? Answer Date of Assessment Author No 06/26/2023 10:51 AM Marleni Petty RN documented as of this encounter Mental Status * Does person have difficulty concentrating/remembering/making decisions? Answer Entry Date Author No 06/26/2023 10:51 AM Marleni Petty RN documented in this encounter Plan of Treatment Upcoming Encounters Date Type Department Care Team (Late st Contact Info) Description 11/02/2024 1:00 PM CDT Office Visit [facility] - Neurology [address] [facility], [place] [address] Sebas Lopez MD [address] [facility] DIV [place] [address] Moshe Lopez MD [address] [place] [phone] documented as of this encounter Visit Diagnoses Not on filedocumented in this encounter Care Teams Elevator Supervisor Relationship Specialty Start Date End Date Lashanda Garrison MD [address] [place] [address] PCP - General Family Medicine 09/16/22 documented as of this encounter
--- OUTSIDE RECORDS SUMMARY | 2024-09-21 10:26 | XMS_ITS | Encounter Summary ---
Author Organization [facility] Address [address] [facility] [place] [address] Care Team Providers Care Training Generalist Name Role Phone Lashanda Garrison MD Primary Care Provider [phone] Reason for Visit * Reason Onset Date Comments MEDICATION REFILL 05/15/2023 Encounter Details Date Type Department Care Team (Late st Contact Info) Description 05/15/2023 Refill [facility] - Neurology [address] [place] [phone] Moshe Lopez MD [address] [place] [phone] MEDICATION REFILL Social History Tobacco Use [...] and heating? Not hard at all 09/20/2022 [facility] [place] of Occupat ional Health - Occupational [...] place to sleep or slept in a fdc (including now)? 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 Extract Of Poison Cass Anaphylaxis Pended Medication Order: Requested Prescriptions Pending Prescriptions Disp Refills ??? clonazePAM (KlonoPIN) 0.5 MG tablet 30 tablet 1 Sig: Take 1 (one) tablet by mouth at bedtime ANT SETTER documented in this encounter Plan of Treatment Upcoming Encounters Date Type Department Care Team (Late st Contact Info) Description 11/02/2024 1:00 PM CDT Office Visit [facility] - Neurology [address] [place] [address], [facility] [place] [address] Sebas Lopez MD [address] [place] [address] OF [place] [address] Moshe Lopez MD [address] [place] [address] [place] [phone] documented as of this encounter Visit Diagnoses Diagnosis Localization-related (focal) (partial) 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, not intractable, with status epilepticus (HCC) documented in this encounter Care Teams Training Generalist Relationship Specialty Start Date End Date Lashanda Garrison MD [address] [place] [address] PCP - General Family Medicine 09/16/22 documented as of this encounter
--- OUTSIDE RECORDS SUMMARY | 2024-09-21 10:26 | XMS_ITS | Encounter Summary ---
Author Organization [facility] Address [address] [facility] [place] [address] Care Team Providers Care Manager Quality Compliance Name Role Phone Lashanda Garrison MD Primary Care Provider [phone] Reason for Visit * Reason Onset Date Comments MEDICATION REFILL 09/14/2024 Encounter Details Date Type Department Care Team (Late st Contact Info) Description 09/14/2024 Refill [facility] - Neurology [address] [place] [phone] Moshe Lopez MD [address] [place] [phone] MEDICATION REFILL Social History Tobacco Use [...] and heating? Not hard at all 09/20/2022 [facility] [place] of Occupat ional Health - Occupational Stress [...] place to sleep or slept in a longterm (including now)? 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 Gender Identity Female 02/02/2024 9:38 AM [...] Description 11/02/2024 1:00 PM CDT Office Visit [facility] - Neurology [address] [place] [address], [facility] [place] [phone] Sebas Lopez MD [address] [place] [address] [place] [address] Moshe Lopez MD [address] [place] [address] [place] [address] documented as of this encounter Visit Diagnoses Diagnosis Localization-related (focal) (partial) 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, not intractable, with status epilepticus (HCC) documented in this encounter Care Teams Manager Quality Compliance Relationship Specialty Start Date End Date Lashanda Garrison MD [address] [place] [phone] PCP - General Family Medicine 09/16/22 documented as of this encounter
--- OUTSIDE RECORDS SUMMARY | 2024-09-21 10:26 | XMS_ITS | Clinical Summary ---
Author Organization [facility] [employer] Address [address] [place] [address] Care Team Providers Care Marine Gear Keeper Name Role Phone Lashanda Garrison MD Primary Care Provider [phone] Source Comments [facility] Affiliates and Associated Physician Practices is amultiple site organization consisting of ambulatory clinics and hospital sitesin [place], [place], [place] and [place]. This disclosure is being madepursuant to the Care Everywhere program and may not contain all information available regarding this patient. Last updated 18.[facility] [employer] Allergies Active Allergy Reactions Criticality Noted Date Comments Extract Of Poison Cass Anaphylaxis High 09/17/2016 Medications * Be aware that medications may not be up to date on this document. Alwaysverify current medications with the patient. 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, not intractable, with status epilepticus (HCC) Take 1 (one) tablet by mouth once daily 90 tablet 3 03/07/20 24 Active eslicarbazepine (Aptiom) 600 MG tabletIndicatio ns: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, not intractable, with status epilepticus (HCC) Take 1 (one) tablet by mouth once daily 30 tablet 08/11/19 25 Active clonazePAM (KlonoPIN) 0.5 MG tabletIndicatio ns: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, not intractable, with status epilepticus (HCC) TAKE 1 TABLET BY MOUTH EVERYDAY AT BEDTIME 31 tablet 5 09/14/19 25 Active clonazePAM (KlonoPIN) 0.5 MG tabletIndicatio ns: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, not intractable, with status epilepticus (HCC) TAKE 1 TABLET BY MOUTH EVERYDAY AT BEDTIME 31 tablet 5 03/07/20 24 025 Discontinued Active Problems Problem Noted Date Diagnosed Date Lumbar spondylosis 01/14/2023 02/04/2023 Collapse of vertebra 01/12/2023 02/04/2023 Pain of both hip joints 01/12/2023 02/05/20 23 Degeneration of lumbar intervertebral disc 01/1202/04/2023 Lung nodule 11/27/2022 02/04/2023 Closed fracture of proximal end of right humerus 10/09/2022 10/20/2022 Fracture of lumbar spine 10/09/2022 023 Laceration of left thigh 10/09/2022 023 Solitary pulmonary nodule 10/09/20222022 Ureterolithiasis 09/16/2022 Closed fracture of sacrum, u nspecified portion of sacrum, initial encounter 09/16/2022 Fall, subsequent encounter 09/16/2022 Hill Sachs deformity 09/16/2022 Claros Juan Manuel lesion 09/16/2022 Closed fracture of transvers e process of lumbar vertebra, initial encounter 09/16/2022 Cobalamin deficiency 07/16/2022 10/20/2022 Vitamin D deficiency 07/16/2022 10/20/2022 Seizure 09/05/2021 Impaired mobility and ADLs 08/28/2021 Essential hypertension 08/06/2021 Acute encephalopathy 08/03/2021 Hypothyroidism 08/03/2021 Hypernatremia 08/03/2021 Liver enzyme elevation 08/03/2021 Leukocytosis 08/03/2021 Cavernous malformation 08/03/2021 Orthopedic hardware present 07/16/2021 Edema of foot 07/16/2021 Ankle pain 07/15/2021 Status epilepticus 06/20/2019 Osteoporosis 02/23/2019 Shai's thyroiditis 02/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 Gastroesophageal reflux disease without esophagi tis 05/05/2018 Depression 11/05/2016 Anxiety 11/05/2016 Mild cognitive impairment 10/06/2016 Esophageal hiatus hernia 10/06/2016 Constant low-grade dysphagia 10/06/2016 Turpin's esophagus with high grade dysplasia Abnormality of gait 10/06/2016 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 09/18/2016 Seizures 09/17/2016 Resolved Problems Problem Noted Date Diagnosed Date Resolved Date Laceration of forehead 10/09/2022 10/20/202212/01 Altered mental status 11/29/20172021 Encounters Date Type Department Care Team Description 09/15/2024 Telephone [facility] - Pulmonology [address] [place] [phone] Kirill Mae MD Appointment 09/14/2024 Refill [facility] - Pulmonology [address] [place] [phone] Kirill Mae MD MEDICATION REFILL 09/14/2024 Refill [facility] - Neurology [address] [place] [phone] Moshe Lopez MD MEDICATION REFILL 09/13/2024 Refill [facility] - Neurology [address] [place] [phone] Moshe Lopez MD Refill Request 08/10/2024 Orders Only [facility] Neurology [address] [place] [phone] Moshe Lopez MD Localization-related (focal) (partial) 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, not intractable, with status epilepticus (HCC) 08/09/2024 Telephone [facility] - Neurology [address] [facility] [place] [address] Moshe Lopez MD Medication Management from Last 3 Months Immunizations Immunization Administration Dates Next Due COVID PFIZER BIVALENT 12Y+ 30mcg/0.3ML 03/10/2022 Covid Pfizer primary monoval ent 12+ yr 0.3mL Purple cap 02/14/2021 HEP B VACCINE 06/30/2008,02/01/2008,12/28/2007 HIB Hep B 02/01/2008 INFLUENZA VACCINE 01/24/2022, 9,01/08/2017,2015,12/31/2015,03/04/2015,01/17/2014,1 INFLUENZA VACCINE, ADJUVANTE D, TRIV. (FLUAD TRIVALENT; 65Y+) (AIIV3) 01/12/2018 INFLUENZA VACCINE, CELL CULT URE, TRIV. (FLUCELVAX TRIVALENT; 6MO+), 0.5 ML (CCIIV3) 04/08/2013 INFLUENZA VACCINE, HIGH-DOSE , QUADR. (FLUZONE HIGH-DOSE QUADRIVALENT; 65Y+), 0.7 ML (HD-IIV4) 01/23/2022,02/08/2020,01/25/2019 PNEUMOCOCCAL PCV20 CONJ VAC IM 01/14/2024 PNEUMOCOCCAL PPSV23 02/21/2019 PNEUMOCOCCAL PPV VACCINE 05/19/2014,01/17/2014 Pneumococcal Pcv13 Conj 01/29/2018,01/28/2018, TD (AGE 7-ADULT) 01/18/2008 TDAP, HISTORIC VACCINE 01/18/2008 ZOSTER VACCINE, LIVE 05/19/2014 Zoster Hzv Vacc Recombinant Inj Im 12/22/2018, Family History Medical History Relation Name Comments CVA Father Relation Name Status Comments Father Mother heart disease Sister siblings have h istory of multiple sclerosis, lung cancer, and neoplasm of the stomach Social History Tobacco Use Types Packs/Day Years Used Date Smoking Tobacco: Never Smokeless Tobacco: Never Tobacco Cessation:Counseling Given: Not Answered Alcohol Use Standard Drinks/Week Comments Not Currently [...] and heating? Not hard at all 09/20/2022 [facility] [employer] of Occupat ional Health - Occupational Stress [...] place to sleep or slept in a fpc (including now)? 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 Gender Identity Female 02/02/2024 9:38 AM CDT Sexual Orientation Not on file Last Filed Vital Signs Vital Sign Reading Time Taken Comments Blood Pressure 142/87 01/14/2024 11:03 AM CDT Pulse 88 01/14/2024 11:03 AM CDT Temperature 36.6 C (97.8 F) 06/26/2023 10:39 AM CUTTING MACHINE TENDER DECORATIVE Respiratory Rate 17 01/14/2024 11:03 AM CDT Oxygen Saturation 96% 01/14/2024 11:03 AM CDT Inhaled Oxygen Concentration - - Weight 80.9 kg (178 lb 6.4 oz) 01/14/2024 11:03 AM CDT Height 162.6 cm (5' 4) 01/14/2024 11:03 AM CDT Body Mass Index 30.62 01/14/2024 11:03 AM CDT Plan of Treatment Upcoming Encounters Date Type Department Care Team (Late st Contact Info) Description 11/02/2024 1:00 PM CDT Office Visit [facility] - Neurology [address] [place] [address], [place] [address] Sebas Lopez MD [address] [place] [address] [place] [address] Moshe Lopez MD [address] [place] [address] [place] [phone] Health Maintenance Due Date Last Done Comments BONE DENSITY TESTING 1950 COLOGUARD (AGES 45-75) - COLON CA SCREENING 1950 COLON MONITORING 1950 COLONOSCOPY - COLON CA SCREENING 1950 CT COLONOGRAPHY - COLON CA SCREENING 1950 Colorectal Cancer Screening 1950 FIT - COLON CA SCREENING 1950 FLEX SIG - COLON CA SCREENING 1950 LIPID TESTING 1950 MAMMOGRAM 1950 HEPATITIS C SCREENING 12/28/1966 DTAP/TDAP/TD VACCINES (3 - Td or Tdap) 01/17/2018 01/18/2008, 01/18/2008 COVID-19 VACCINE ( season) 2023 03/10/2022, 03/09/2022, 02/14/2021, Additional history exists Respiratory Syncytial Virus (RSV) Vaccine Pt: or over 60 yrs (1 - 1-dose 75+ series) 01/02/2024 DEPRESSION SCREENING 04/20/2024 MEDICARE AWV CALENDAR YEAR 2024 INFLUENZA VACCINE (Season Ended) 2024 01/24/2022, 01/23/2022, 02/08/2020, Additional history exists HIB VACCINE Aged Out 02/01/2008 No longer eligi ble based on patient's age to complete this topic HEPATITIS B VACCINE Completed 06/30/2008, 02/01/2008, 02/01/2008, Additional history exists ZOSTER VACCINE Completed 12/22/2018, 07/2018, 05/19/2014 PNEUMOCOCCAL VACCINE 50+ Completed 024, 02/21/2019, 01/29/2018, Additional history exists HPV VACCINE Aged Out No longer eligi ble based on patient's age to complete this topic MENINGOCOCCAL (Group B) VACCINE SHARED DECISION-MAKING Aged Out No longer eligible based on patient's age to complete this topic MENINGOCOCCAL GROUPS A/C/Y/W VACCINE Aged Out No longer eligible based on patient's age to complete this topic Medical Devices Implanted Type [facility] Music Therapy Device Identifier Shelf Expiration Date Model / Serial / Lot Junior Healix Adv Br 6.5mm - [id number] Implanted:Qty: 1 on 11/13/2022 by Sebas Lopez MD at [facility] Right: Shoulder [employer] 06/17/2024 [id number] / [id number] / [id number] Healix Advance Sp Biocomposite Junior Tcp/Plla Absorable Junior Implanted:Qty: 2 on 11/13/2022 by Sebas Lopez MD at [facility] Right: Shoulder [employer] 01/17/2023 [id number] / [id number] / [id number] Insurance AETNA MEDICARE [facility] MEDICAID - [place] AETNA MEDICARE [facility] Advance Directives Documents on File Type Date Recorded 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 Adv Directive/Living Will/POA 12/10/2017 9:45 AM * Full Code (Latest Code Status on File) Date Activated Date Inactivated Comments 09/16/2022 6:20 PM 09/29/2022 3:57 PM * Full Code Date Activated Date Inactivated Comments 09/05/2021 6:17 PM 09/07/2021 6:38 PM * Full Code Date Activated Date Inactivated Comments 08/28/2021 11:46 PM 08/29/2021 3:33 PM * Full Code Date Activated Date Inactivated Comments 08/03/2021 12:22 PM 08/09/2021 5:14 PM * LIMITED RESUSCITATION-PRIOR AND AFTER ARREST Date Activated Date Inactivated Comments 06/21/2019 3:31 AM 07/09/2019 5:02 PM Question Answer Comments Limited Resuscitation: No Chest Compress ionNo Intubation, No Invasive VentilationNo Cardioversion, No Defibrilation, No External or Internal PacemakerNo Cardioactive Drugs, No Vasopressors Care Teams Marine Gear Keeper Relationship Specialty Start Date End Date Lashanda Garrison MD [address] [place] [address] PCP - General Family Medicine 09/16/22
--- OUTSIDE RECORDS SUMMARY | 2024-09-21 10:26 | XMS_ITS ---
Author Organization [facility] Care Team Providers Care Trade Union Secretary Name Role Phone Venkata Contreras Unavailable Unavailable Care Team Name Role Address Phone Organization Dates Behfar Diane PCP [address] [place], [place], [facility], [facility] (Office): : : [facility] 08/09/2021 - 08/10/2021 Reason for Referral No Reasons for Referral Entered Social History Social History Observation Description Start Date End Date Code Code System Current Smoking Status Tobacco smoking consumption unknown 322221929 SNOMED CT Sex Assigned At Female 1950 [address] [facility] Gender Identity
--- OUTSIDE RECORDS SUMMARY | 2024-09-21 10:26 | XMS_ITS | Encounter Summary ---
Author Organization [facility] Address [address] [facility] [place] [address] Care Team Providers Care Cellar Worker Name Role Phone Lashanda Garrison MD Primary Care Provider [phone] Reason for Visit * Reason Onset Date Comments MEDICATION REFILL 12/25/2020 Encounter Details Date Type Department Care Team (Late st Contact Info) Description 12/25/2020 Refill [facility] [address] [place] [address], [place] [address] Moshe Lopez MD [address] [place] [phone] MEDICATION REFILL Social History Tobacco Use Types Packs/Day Years Used Date Smoking Tobacco: Never Smokeless Tobacco: Never Alcohol Use Standard Drinks/Week Comments Not Currently 0 (1 standard drink = 0.6 oz pur e alcohol) occasional AUDIT-C Answer Date Recorded Frequency of Alcohol Consumption Never 06/21/2019 Average Number of Drinks 1 or 2 020 Frequency of Binge Drinking Never 06/2019 Comments No Sex and Gender Information Value Date Recorded Sex Assigned at Female 02/02/2024 9:38 AM CDT 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 Answer Date of Assessment Author No 06/21/2019 1:49 AM Jannette Rendon RN * Is person blind or have serious difficulty seeing? Answer Date of Assessment Author No 06/21/2019 1:49 AM Jannette Rendon RN * Does person have serious difficulty walking/climbing stairs? Answer Date of Assessment Author No 06/21/2019 1:49 AM Jannette Rendon RN * Does person have difficulty dressing/bathing? Answer Date of Assessment Author No 06/21/2019 1:49 AM Jannette Rendon RN * Does person have difficulty doing errands alone? Answer Date of Assessment Author No 06/21/2019 1:49 AM Jannette Rendon RN documented as of this encounter Mental Status * Does person have difficulty concentrating/remembering/making decisions? Answer Entry Date Author No 06/21/2019 1:49 AM Jannette Rendon RN documented in this encounter Plan of Treatment Upcoming Encounters Date Type Department Care Team (Late st Contact Info) Description 11/02/2024 1:00 PM CDT Office Visit [facility] - Neurology [address] [place] [address], [place] [address] Sebas Lopez MD [address] [place] [address] [place] [address] Moshe Lopez MD [address] [place] [address] [place] [address] documented as of this encounter Visit Diagnoses Diagnosis Partial symptomatic epilepsy with complex partial seizures, intractable, without status epilepticus (HCC) Shai's thyroiditis Chronic lymphocytic thyroiditis documented in this encounter Care Teams Cellar Worker Relationship Specialty Start Date End Date Lashanda Garrison MD [address] [place] [address] [place] [address] PCP - General Family Medicine 09/16/22 documented as of this encounter
--- OUTSIDE RECORDS SUMMARY | 2024-09-21 10:26 | XMS_ITS | Encounter Summary ---
Author Organization [facility] Address [address] [facility] [place] [address] Care Team Providers Care Geriatric Social Work Professor Name Role Phone Lashanda Garrison MD Primary Care Provider [phone] Encounter Details Date Type Department Care Team (Late st Contact Info) Description 08/07/2023 Telephone [facility] - Pulmonology [address] [place] [address], [place] [phone] Eleno Everett MD [address] [place] [address] DIV OF PULMONARY/[place] [address] Social History Tobacco Use Types Packs/Day Years [...] and heating? Not hard at all 09/20/2022 [facility] [place] of Occupat ional Health - Occupational Stress [...] place to sleep or slept in a [place] facility (including now)? 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 Said the mass was too small and to check again in 6 months. Patient is asking if she should push her CT and office appt that is scheduled in September. Call back number is [phone] documented in this encounter Plan of Treatment Upcoming Encounters Date Type Department Care Team (Late st Contact Info) Description 11/02/2024 1:00 PM CDT Office Visit [facility] - Neurology [address] [place] [address], [place] [phone] Sebas Lopez MD [address] [place] [address] [place] [address] Moshe Lopez MD [address] [place] [address] [place] [phone] documented as of this encounter Visit Diagnoses Not on filedocumented in this encounter Care Teams Geriatric Social Work Professor Relationship Specialty Start Date End Date Lashanda Garrison MD [address] [place] [address] PCP - General Family Medicine 09/16/22 documented as of this encounter
--- OUTSIDE RECORDS SUMMARY | 2024-09-21 10:26 | XMS_ITS | Data Portability ---
Author Organization QUANG ALBALeila Sagastume Address [address] [facility] [place] [address] Care Team Providers Care Soaker Meat Name Role Phone ANA LILIA HOFFMANN Primary Care Provider Unavailabl e Assessment No assessment recorded. Plan of Treatment Reminders Order Date Submit Date Provider Last Modified By Organization Details Last Modified Time Details Appointments None recorded . Lab hemoglob in, qualitat bran, stool by immunolo gic method 2018 019 B[facility], [address] [facility], [address], [place], [address], 9 15:52:30 T4, free, serum 2014 015 [email or web address] [facility], [address] [facility], [address], [place], [address], 6 09:55:40 lipid panel, serum 2014 015 [email or web address] [facility], [address] [place] [address], [address], [place], [address], 6 10:12:56 TSH, serum or plasma 2014 015 [email or web address] [facility], [address] [facility], [address], [place], [address], 6 10:13:20 Referral cardiolo gist referral 2017 019 [facility], [address] [place] [address] [address], [place], [address], 9 16:05:[address] referral 2017 018 ATHENAFAX Not available 9 16:10:21 neurolog ist referral 2017 018 [facility] Not available 9 13:17:[address] referral - History of Turpin' s esophagu s and H. pylori. 2014 015 ATHENAFAX Barbara Arguello MD, [address], [address], [place], [address], 5 11:05:23 Procedures trans-th oracic echocard iogram (TTE) (PROC) 2017 019 [facility] (Imaging), [address] [place], [address], 9 17:21:35 treadmil l nuclear stress test (PROC) 2017 019 [email or web address] Not available 9 09:55:43 Surgeries None recorded . Imaging MAMMO, screenin g, digital, bilatera l 2018 019 [facility] (Imaging), [address] [place], [address], 9 16:20:34 MAMMO, screenin g, bilatera l 2017 018 [facility] (Imaging), [address] [place], [address], 9 11:27:05 echo exam, 2D - Had atrial enlargem ent on EKG. [address] ([facility]), [address] [facility], [place], [address], 5 14:33:48 Medication Orders famotidi ne 40 mg tablet 2018 019 [facility]2510, [address] [place], [address], 9 15:52:26 levothyr oxine 125 mcg tablet 2018 019 [facility]2510, [address] [place], [address], 9 15:52:27 clonazep am 0.5 mg tablet 2018 019 [email or web address] [facility]2510, [address] [place], [address], 9 11:19:48 Aptiom 400 mg tablet 2018 019 [facility]2510, [address] [place], [address], 9 15:52:27 oxcarbaz epine 300 mg tablet 2017 018 [facility]468[facility], [address] [place], [place], [id number], 9 15:17:37 clonazep am 0.5 mg tablet 2017 018 [email or web address] [facility] #32818, [address] [place], [place], [id number], 8 12:34:26 levothyr oxine 125 mcg tablet 2017 018 [facility] #[id number], [address] [place], [place], [id number], 8 11:45:48 temazepa m 30 mg capsule 2014 015 [facility] #40798, [address] [place], [place], [id number], 9 15:16:45 Patient TargetsNo targets recorded. Patient Instructions Encounter Date Encounter Id Patient Instructions Last Modified By Organization Details Last Modified Time 06/07/2014 [id number] anxiety disorder : care instructions Not available 06/08/2014 09:33:53 learning about anxiety disorders [email or web address] Not available 06/08/2014 09:33:53 hypothyroidism: care instructions [email or web address] Not available 06/08/2014 09:33:53 02/25/2018 [id number] epilepsy: care instructions [email or web address] Not available 02/25/2018 15:59:13 learning about healthy weight [email or web address] Not available 02/28/2018 18:03:21 04/15/2018 [id number] mammogram: about this test Not available 04/15/2018 11:45:42 epilepsy: care instructions [email or web address] Not available 04/15/2018 11:45:43 10/18/2018 [id number] mammogram: about this test [email or web address] Not available 10/18/2018 15:52:24 epilepsy: care instructions [email or web address] Not available 10/18/2018 15:52:24 Reason for Referral History of Turpin's esophag us and H. pylori. 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 Referral for Abdominal bloating Referring Physician: Ana Lilia Hoffmann [facility] Medicine, Encounter Date: 02/25/2018 Correctional Medicine Physician Referral for El ectrocardiogram abnormal Referring Physician: Ana Lilia Hoffmann [facility] Medicine, Encounter Date: 04/15/2018 Results Created Date Observation Date Name Description Value Unit Range Abnormal Flag Note LastModifiedBy Organization Detail LastModifiedTime 11/04/1911/10/2018 fecal occul t blood , immun oassa y, stool occult blood, fecal, ia Negati ve negati ve Not Available [facility] ([facility]) [address] [facility], [place], [address], 11/11/2018 10:37:23 06/08/19 15 04/02/2014 imagi ng/di agnos tic resul t No observ ation record ed. [facility] Not Available 2014 18:07:39 09/25/19 19 09/20/2018 trans -thor acic echoc ardio gram (TTE) (PROC ) No observ ation record ed. [facility] (Imaging) [address] [place] [address], [address], 09/27/2018 15:49:23 06/19/19 20 06/19/2019 CT, brain , w/o contr ast No observ ation record ed. [address] [address], [place], [address], 06/28/2019 09:38:20 06/19/19 20 06/19/2019 XR, chest , 2 view No observ ation record ed. [facility] (Lab) [address] [place] [address], [address], 06/28/2019 09:38:20 06/20/19 20 06/19/2019 CT, abdom en + pelvi s, w/ contr ast No observ ation record ed. [address] [address], [place], [address], 06/28/2019 09:38:21 06/20/19 20 06/20/2019 MRI, brain + brain stem, w/wo contr ast No observ ation record ed. [address] [address], [place], [address], 06/28/2019 09:38:21 06/22/19 20 06/20/2019 elect roenc ephal ogram No observ ation record ed. [address], [address], 06/28/2019 09:38:21 Result Notes None recorded. Problems Name Problem SNOMED Code Status Onset Date Resolution Date Notes Provider Name and Address Organization Details Recorded Time Seizure disorder 232305901 Active 2017 Paula Castillo MA null, [place] - [facility] 8 15:25:58 Gastroesophag eal reflux disease 667125595 Active 2018 Paula Castillo MA null, [facility] 9 09:54:34 Essential hypertension 03323281 Active Michael Solorzano MD Attn: Accounting ,[address] [place], [address] , [facility] 5 18:47:42 Anxiety disorder 141600324 Active Michael Solorzano MD Attn: Accounting ,[address] [place], [address] , [facility] 5 18:47:42 Hypothyroidis m 43098159 Active Michael Solorzano MD Attn: Accounting ,[address] [place], [address] , [facility] 5 18:47:42 Problem Notes None recorded. Procedures Surgical History Date Name Laterality Status Provider Name and Address Organization Details Recorded Time 04/20/18 95 Caesarean Section completed Nereida Prajapati RN [facility] 03/17/2014 10:15:11 04/20/18 65 Appendectomy completed Nereida Prajapati RN [facility] 03/17/2014 10:15:11 tonsillectomy completed Paula Castillo MA [facility] 02/25/2018 15:27:47 Xcapsl ctrc rmvl cplx wo ecp completed Paula Castillo MA [facility] 02/25/2018 15:28:20 Gastrointestinal Surgery completed Paula Castillo MA [facility] 02/25/2018 15:28:38 Imaging Results None recorded. Procedure Notes None recorded. Medical Equipment None Reported. Allergies No known drug allergies Medications Name Sig Start Date Stop Date Status Note LastModified by Organization Details LastModified Time Prescriptio n - Prior Authorizati on Request active Not Available Not Available N ot Available compounded medication Apply 1-2 grams 2-3 times daily as needed for dry skin. Do not apply to face. active Not Available Not Available No t Available latanoprost 0.005 % eye drops 10/18 completed Not Available Not Available Not Available trazodone 50 mg tablet 10/18 completed Not Available Not Available Not Available ranitidine 300 mg tablet Take 1 tablet twice a day by oral route. 10/18 completed Not Available Not Available Not Available hydrocodone 5 mg-acetamin ophen 325 mg tablet 10/18 completed Not Available Not Available Not Available famotidine 40 mg tablet Take 1 tablet(s) every day by oral route. active Not Available Not Available No t Available clonazepam 0.5 mg tablet TAKE 1 TABLET BY MOUTH THREE TIMES A DAY NEEDED 2018 active Not Available Not Available Not Avai lable oxcarbazepi ne 300 mg tablet Take 1 tablet twice a day by oral route. 10/18 completed Not Available Not Available Not Available amlodipine 5 mg tablet TAKE ONE TABLET BY MOUTH EVERY DAY 10/18 completed Not Available Not Available Not Available divalproex 500 mg tablet,ricky yed release 10/18 completed Not Available Not Available Not Available ciprofloxac in 500 mg tablet 10/18 completed Not Available Not Available Not Available sulfamethox azole 800 mg-trimetho prim 160 mg tablet 10/18 completed Not Available Not Available Not Available tramadol 50 mg tablet 10/18 completed Not Available Not Available Not Available levothyroxi ne 75 mcg tablet 08/17 completed Not Available Not Available Not Available levothyroxi ne 100 mcg tablet TAKE ONE TABLET BY MOUTH ONCE DAILY 10/18 completed Not Available Not Available Not Available erythromyci n 250 mg tablet 10/18 completed Not Available Not Available Not Available levothyroxi ne 88 mcg tablet 08/17 completed Not Available Not Available Not Available famotidine 20 mg tablet 10/18 completed Not Available Not Available Not Available metoclopram chrissie 5 mg tablet 10/18 completed Not Available Not Available Not Available temazepam 15 mg capsule 10/18 completed Not Available Not Available Not Available temazepam 30 mg capsule TAKE ONE CAPSULE BY MOUTH AT BEDTIME 10/18 completed Not Available Not Available Not Available paroxetine 20 mg tablet 10/18 completed Not Available Not Available Not Available pantoprazol e 40 mg tablet,ricky yed release TAKE 1 TABLET BY MOUTH EVERY DAY active Not Available Not Available No t Available trazodone 150 mg tablet 10/18 completed Not Available Not Available Not Available levothyroxi ne 125 mcg tablet Take 1 tablet(s) every day by oral route. active Not Available Not Available No t Available divalproex ER 500 mg tablet,exte nded release 24 hr 10/18 completed Not Available Not Available Not Available omeprazole 20 mg capsule,del ayed release 10/18 completed Not Available Not Available Not Available hydroxyzine HCl 25 mg tablet 10/18 completed Not Available Not Available Not Available levetiracet am 750 mg tablet 10/18 completed Not Available Not Available Not Available zolpidem 10 mg tablet 10/18 completed Not Available Not Available Not Available Vitamin D3 25 mcg (1,000 unit) capsule Take 1 capsule every day by oral route for 30 days. 10/18 completed Not Available Not Available Not Available Alcohol Prep Pads Use to sanitize the affected area prior to applicati on of medicatio n as indicated . active Not Available Not Available No t Available nitrofurant oin monohydrate /macrocryst als 100 mg capsule 10/18 completed Not Available Not Available Not Available Rozerem 8 mg tablet 10/18 completed Not Available Not Available Not Available levetiracet am 1,000 mg tablet 10/18 completed Not Available Not Available Not Available Prevnar 13 (PF) 0.5 mL intramuscul ar syringe 10/18 completed Not Available Not Available Not Available Aptiom 400 mg tablet Take 1 tablet every day by oral route in the morning. 2018 active Not Available Not Available Not Avai lable Fluzone High-Dose 2014- (PF) 180 mcg/0.5 mL intramuscul ar syringe 10/18 completed Not Available Not Available Not Available Fluzone High-Dose 3140-8248 (PF) 180 mcg/0.5 mL intramuscul ar syringe 10/18 completed Not Available Not Available Not Available Fluzone High-Dose 3326-7308 (PF) 180 mcg/0.5 mL intramuscul ar syringe 10/18 completed Not Available Not Available Not Available Shingrix (PF) 50 mcg/0.5 mL intramuscul ar suspension, kit 10/18 completed Not Available Not Available Not Available Fluad 2017- 65yr up(PF)45 mcg(15 mcgx3)/0.5 mL intramuscul ar syringe 10/18 completed Not Available Not Available Not Available Vitals Date Recorded Respiratory rate Oxygen saturation Oxygen saturation in Arterial blood by Pulse oximetry Body weight Heart rate Body mass index (BMI) Body height Body temperature Systolic blood pressure Diastolic blood pressure Provider Name and Address Organization Details Last Updated DateTime 5 14 /min 100 % 100 % 78080.6 3862 g 74 /min 23.8 kg/m2 154.94 cm 97.7 [degF] 120 mm[Hg] 86 mm[Hg] Ivett Trammell MA [facility] 5 17:48:18 Date Recorded Body height Body mass index (BMI) Body weight Body temperature Oxygen saturation Oxygen saturation in Arterial blood by Pulse oximetry Heart rate Systolic blood pressure Diastolic blood pressure Provider Name and Address Organization Details Last Updated DateTime 9 158.75 cm 29 kg/m2 00397.4 7 g 98.5 [degF] 97 % 97 % 107 /min 140 mm[Hg] 90 mm[Hg] Cherry Gatica MA [facility] 9 15:13:27 Date Recorded Body height Body mass index (BMI) Body weight Body temperature Oxygen saturation Oxygen saturation in Arterial blood by Pulse oximetry Heart rate Respiratory rate Systolic blood pressure Diastolic blood pressure Provider Name and Address Organization Details Last Updated DateTime 8 158.75 cm 31 kg/m2 12141.5 9 g 98.3 [degF] 98 % 98 % 73 /min 18 /min 128 mm[Hg] 74 mm[Hg] Paula Castillo MA [facility] 8 15:25:03 Date Recorded Body height Body mass index (BMI) Body weight Body temperature Oxygen saturation Oxygen saturation in Arterial blood by Pulse oximetry Heart rate Systolic blood pressure Diastolic blood pressure Provider Name and Address Organization Details Last Updated DateTime 8 158.75 cm 31 kg/m2 20612.6 9 g 98.8 [degF] 97 % 97 % 76 /min 110 mm[Hg] 72 mm[Hg] Paula Castillo MA [facility] 8 11:15:42 Social History Question Answer Notes LastModified by Organizat ion Details LastModified Time Tobacco Smoking Status Never Smoker Ivett Trammell MA [facility], [place] - [facility] 06/07/2014 17:48:18 What Is Your Level Of Caffeine Consumption? Occasional Information not available 06/07/2014 How Much Tobacco Do You Chew? None Information not available 02/25/2018 What Type Of Diet Are You Following? REGULAR Information not available 06/07/2014 Which Illicit Or Recreational Drugs Have You Used? No Information not available 02/25/2018 Education 2 Year College Informatio n not available 06/07/2014 Are There Any Guns Present In Your Home? No Information not available 06/07/2014 Hard Of Hearing Or Deaf In One Or Both Ears? No Information not available 06/07/2014 Legally Blind In One Or Both Eyes? No Information no t available 06/07/2014 Marital Status Informatio n not available 06/07/2014 What Was The Date Of Your Most Recent Tobacco Screening? 10/18/2018 Information not available 11/11/2018 Performs Monthly Self-breast Exam? Yes Information no t available 06/07/2014 Seat Belts Used Routinely Yes Information not available 06/07/2014 Smoke Alarm In Home Yes Information not available 06/07/2014 How Much Tobacco Do You Smoke? No Information not available 06/07/2014 General Stress Level Low Information not available 06/07/2014 Do You Use Sunscreen Routinely? No Information not available 06/07/2014 Sex: Unknown Functional Status Question Answer Note LastModified by Organization D etails LastModified Time What is your level of alcohol consumption? None Information not available 06/07/2014 What is your exercise level? Moderate Information not available 06/07/2014 Mental Status None recorded. Family History Relationship Description Onset Age of this Age Resolved Age Notes LastModified by Organization Details LastModified Time Son Attention deficit hyperactivit y disorder [email or web address] Not available 02/25 15:29:03 Sister Disorder of thyroid gland [email or web address] Not available 2017 15:29:15 Brother Heart disease [email or web address] Not available 2017 15:29:49 Medical History Condition Response Coronary Artery Disease N Other N High Blood Pressure N Atrial Fibrillation N Hyperthyroidism Y Kidney or Bladder Problems N Thyroid Problems N GI Problems N Depression N COPD N Blood Clots N Skin Problems N Anemia N Heart Attack (DC) N Anxiety Disorder N Diabetes N Muscle, Joint, or Bone Problems N Seizures/Epilepsy Y Acid Reflux (GERD) Y Cancer N Stroke N Asthma N Allergies Y High Cholesterol N Sleep Disorder Y GERD/Reflux Y Hepatitis N Liver Disease N Headaches N Hypertension Y Osteoporosis N Heart Failure N Gynecological HistoryNo gynecological history recorded. Obstetrics History GPAL:G 0 P 0 0 0 0 Past Encounters Encounter ID Performer Location Encounter Start Date Encounter Closed Date Diagnosis/Indication Diagnosis SNOMED-CT Code Diagnosis ICD10 Code Diagnosis Note [id number] Michael Solorzano MD [facility] ([facility]) [address] [place] [address] 06/07/2014 14:31:36 06/07/2014 18:49:25 Essential hypertension 78224143 Anxiety disorder 726453326 Hypothyroidism 11828381 [id number] Ana Lilia Hoffmann MD [facility] [address] [place] [address] 02/25/2018 14:41:50 03/01/2018 12:08:03 Seizure disorder 912426160 G40.909 repeated hospitaliz ations for seizures recently; does well on 3 pills but wants to get off Keppra. Abdominal bloating 40182 9008 R14.0 Body mass index 30+ - obesity 482991840 Z68.31 discussed low fat, low carb diet, and encouraged exercise. Standardiz ed adult depression screening tool completed 6673150275 71478 Z13.89 screening indicates major depression ; will monitor and start medication s at next visit if not improving. Med list indicates she is on benzodiaze pines and paroxetine . [id number] Ana Lilia Hoffmann MD [facility] [address] [place] [address] 04/15/2018 10:47:03 04/21/2018 11:27:04 Seizure disorder 852438890 G40.909 Hypothyroidism 98425270 E03.9 Screening mammography 24 691696 Z12.31 Electrocar diogram abnormal 828864515 R94.31 [id number] Ana Lilia Hoffmann MD [facility] [address] [place] [address] 10/18/2018 14:39:30 10/29/2018 08:07:57 Epilepsy 67260093 G40.909 Hypothyroidism 68614246 E03.9 Gastroesop hageal reflux disease without esophagitis 177909565 K21.9 Screening mammography 24 378574 Z12.31 Screening for malignant neoplasm of colon 774857848 Z12.11 Health Concerns Section Related Observation LastModified by Organization Detai ls LastModified Time None Recorded Concern Status LastModified by Organization Details LastModified Time None Recorded Advance Directives Directive None Recorded Payers Encounter Date Sequence Insurance Name Policy Number Policy Adrian Covered Member ID Adrian Member ID Guarantor Name 06/07/2014 1 [place] Candice E Vitt [id number] Candice Vitt 02/25/2018 1 [facility] (MEDICARE REPLACEMENT HMO) Candice Vitt [id number] Candice Vitt 04/15/2018 1 [facility] (MEDICARE REPLACEMENT HMO) Candice Vitt [id number] Candice Vitt 10/18/2018 1 [facility] (MEDICARE REPLACEMENT HMO) Candice Vitt [id number] Candice Vitt Notes Date Note Type Note Provider Name and Address Organization Details Recorded Time 8 text/html Abdominal PainReported bypatient.Location:generali zed abdominal swelling and bloated sensation Quality:bloating;cramping;t vincent Severity:moderate Duration:intermittent Onset/Timing:wax/wane Modifying Factors:movement; eating; moving bowels; belching; sleep; laying down Associated Symptoms:no fever; no chills; no blood in the urine; no heartburn; no shortness of breathSeizureReported bypatient.Onset/Timing:bett er Context:loss of awareness; loss of consciousness; jerking of limbs; stiffness of limbs Aggravating Factors:stress; lack of sleep; withdrawal from medications Alleviating Factors:medications that helped; rest Associated Symptoms:postictal soreness;postictal fatigue/tiredness;postictal headache;postictal confusion;muscle twitches;dizziness Patient has been under the care of a neurologist in [place] and is improving, but still has seizures and wants her medications to be modified. Ana Lilia Hoffmann MD Attn: Accounting,[address] , [place], [address], [facility] 02/28/2018 18:07:55 8 text/html Coronary Artery Disease F/UReported bypatient.Severity:symptoms are worsening;chest discomfort with household activities/yard work Context:non-smoker Associated Symptoms:chest pain with exertion;dyspnea with exertion;sweats;nausea;unde r stressNotes:Patient was advised at ER that she needed a stress test and echocardiogram.ThyroidRepor sean bypatient.Quality:worsening Severity:moderate Duration:constant Onset/Timing:worse; still present Context:low thyroid levels Modifying Factors:medication Exerciseno exercise Associated Symptoms:difficulty swallowingNotes:Pt was at [facility] ER department recently for seizure like symptoms she does currently take medication for seizures. While there pt had labs drawn pts thyroid which she is medicated for came back too low. May need to increase patients dosage of medication to restabilize level of thyroid in her system. Pt is following up on her seizure disorder and most recent ER stay at [facility]. Pt thinks she is experiencing allergic reactions to her oxcarbazepine we increased her dosage last week to 300 mg take twice per day like pt requested we do since after her first episode in november U had her taking that dosage. Shortly after we increased dosage pt claims she felt like it was getting hard to swallow and said she felt itchy in her throat and eyes. Pt said she is going to try to cut back on the oxcarbazepine to see if this changes anything. Pt could be having problems swalloing due to her thyroid being too low and needing an increase in that medication. Ana Lilia Hoffmann MD Attn: Accounting,[address], [place], [address], [facility] 04/18/2018 17:37:59 9 text/html Reflux/GERDReported bypatient.Symptomsno difficulty swallowing; no pain swallowing; heartburn;postprandial pain Quality:stabbing Severity:moderate Onset/Timing:occurs >1 hr after meals Context:related to any meal;related to caffeine;related to spicy foods;related to stress;positional Alleviating Factors:responds well to famotidine. Aggravating Factors:alcohol use;exertion;lying down;worsened by food;caffeine intake Associated Symptoms:no frequent coughing; no feeling of fullness/mass in throat; no hoarseness; no food getting stuck; no belching/burping; no nausea; no vomiting; not vomiting blood; no regurgitation; no shortness of breath; no chest pain; no difficulty swallowing; no pain when swallowing; no black/tarry stools; no fatigue; no throat pain;heartburn;bad taste;decreased appetiteThyroidReported bypatient.Quality:improving Context:history of hypothyroidism Modifying Factors:medication Associated Symptoms:no cold intolerance; no difficulty swallowing; no neck masses; no constipation; no dry skin; no fatigue; no skin changes; no hair changesNotes:symptoms of hypothyroidism controlled with thyroid replacement therapy. Epilepsy is well controlled by a combination of clonazepam, aptiom, and oxcarbazepine. Ana Lilia Hoffmann MD Attn: Accounting,[address] [place], [address], [place] [facility] 10/29/2018 00:30:28 OBGyn Episode No OBEpisode recorded.
--- OUTSIDE RECORDS SUMMARY | 2024-09-21 10:26 | XMS_ITS | Encounter Summary ---
Author Organization [facility] Address [address] [place] [address] Care Team Providers Care Svp Marketing Name Role Phone Lashanda Garrison MD Primary Care Provider [phone] Reason for Visit * Reason Onset Date Comments MEDICATION REFILL 05/07/2023 Encounter Details Date Type Department Care Team (Late st Contact Info) Description 05/07/2023 Refill [facility] - [facility]rology [address] [place] [phone] Moshe Lopez MD [address] [place] [phone] MEDICATION REFILL Social History Tobacco Use [...] and heating? Not hard at all 09/20/2022 [facility] [place] of Occupat ional Health - Occupational Stress [...] place to sleep or slept in a skilled nursing (including now)? 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 Refill Request Candice Canchola KAYKAY: 11/26/2022Feb due: 05/2023 scheduled:05/2023 LRF: 04/07/2023 Qty Disp: 30 # of refills: 5 Allergies: Allergies Allergen Reactions ??? Extract Of Poison Cass Anaphylaxis Pended Medication Order: Requested Prescriptions Pending Prescriptions Disp Refills ??? 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 documented in this encounter Plan of Treatment Upcoming Encounters Date Type Department Care Team (Late st Contact Info) Description 11/02/2024 1:00 PM CDT Office Visit [facility] Neurology [address] [place] [address], [facility] [place] [id number] Sebas Lopez MD [address] [place] [address] [place] [address] Moshe Lopez MD [address] [place] [address] [place] [phone] documented as of this encounter Visit Diagnoses Diagnosis Localization-related (focal) (partial) 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, not intractable, with status epilepticus (HCC) documented in this encounter Care Teams Svp Marketing Relationship Specialty Start Date End Date Lashanda Garrison MD [address] [place] [address] QUANG Christian [phone] PCP - General Family Medicine 09/16/22 documented as of this encounter
--- OUTSIDE RECORDS SUMMARY | 2024-09-21 10:26 | XMS_ITS | Encounter Summary ---
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 [address] PCP - General Family Medicine 09/16/22 documented as of this encounter
--- OUTSIDE RECORDS SUMMARY | 2024-09-21 10:27 | XMS_ITS | Encounter Summary ---
Author Organization [facility] Address [address] [facility] [place] [address] Care Team Providers Care Repeat Chief Name Role Phone Lashanda Garrison MD Primary Care Provider [phone] Reason for Visit * Reason Onset Date Comments MEDICATION REFILL 07/07/2023 Encounter Details Date Type Department Care Team (Late st Contact Info) Description 07/07/2023 Refill [facility] [address] [place] [phone] Moshe Lopez MD [address] [place] [phone] MEDICATION REFILL Social History Tobacco Use [...] and heating? 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 Gender Identity Female 02/02/2024 9:38 AM CDT [...] Description 11/02/2024 1:00 PM CDT Office Visit [facility] - Neurology [address] [place] [address], [facility] [place] [phone] Sebas Lopez MD [address] [place] [address] [place] [address] Moshe Lopez MD [address] [place] [address] [place] [address] documented as of this encounter Visit Diagnoses Diagnosis Localization-related (focal) (partial) 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, not intractable, with status epilepticus (HCC) documented in this encounter Care Teams Repeat Chief Relationship Specialty Start Date End Date Lashanda Garrison MD [address] [place] [phone] PCP - General Family Medicine 09/16/22 documented as of this encounter
--- OUTSIDE RECORDS SUMMARY | 2024-09-21 10:27 | XMS_ITS | Encounter Summary ---
Author Organization [facility] Address [address] [facility] [place] [address] Care Team Providers Care Title Curator Name Role Phone Lashanda Garrison MD Primary Care Provider [phone] Reason for Visit * Reason Onset Date Comments MEDICATION REFILL 12/14/2020 Encounter Details Date Type Department Care Team (Late st Contact Info) Description 12/14/2020 Refill [facility] [address] [place] [address], [place] [address] Luis Carlos Caraballo MD [address] [place] [phone] MEDICATION REFILL Social History Tobacco Use [...] AM CDT 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 Gender Identity Female 02/02/2024 9:38 AM [...] Description 11/02/2024 1:00 PM CDT Office Visit [facility] - Neurology [address] [place] [address], [facility] [place] [address] Sebas Lopez MD [address] [place] [address] [place] [address] Moshe Lopez MD [address] [place] [address] [place] [address] documented as of this encounter Visit Diagnoses Diagnosis Partial symptomatic epilepsy with complex partial seizures, intractable, 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 [address] PCP - General Family Medicine 09/16/22 documented as of this encounter
--- OUTSIDE RECORDS SUMMARY | 2024-09-21 10:27 | XMS_ITS | Encounter Summary ---
Author Organization [facility] Address [address] [place] [address] Care Team Providers Care Precision Millwright Name Role Phone Lashanda Garrison MD Primary Care Provider [phone] Reason for Visit * Reason Onset Date Comments MEDICATION REFILL 07/07/2023 Encounter Details Date Type Department Care Team (Late st Contact Info) Description 07/07/2023 Refill [facility] [address] [place] [phone] Moshe Lopez MD [address] [place] [phone] MEDICATION REFILL Social History Tobacco Use [...] and heating? Not hard at all 09/20/2022 [facility] [place] of Occupat ional Health - Occupational Stress [...] place to sleep or slept in a custodial (including now)? 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 Gender Identity Female 02/02/2024 9:38 AM CDT [...] Description 11/02/2024 1:00 PM CDT Office Visit [facility] - Neurology [address] [place] [address], [facility] [place] [phone] Sebas Lopez MD [address] [place] [address] OF [place] [address] Moshe Lopez MD [address] [place] [address] [place] [address] documented as of this encounter Visit Diagnoses Diagnosis Localization-related (focal) (partial) 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, not intractable, with status epilepticus (HCC) documented in this encounter Care Teams Precision Millwright Relationship Specialty Start Date End Date Lashanda Garrison MD [address] [place] [phone] PCP - General Family Medicine 09/16/22 documented as of this encounter
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
[2024-09-21 10:52] LABS: Basophils Absolute Auto 0.1 K/mm3 (0.0-0.1); Basophils Percent Auto 0.7 % (0.2-1.2); Eosinophils Absolute Auto 0.2 K/mm3 (0-0.3); Eosinophils Percent Auto 2.3 % (0-4.4); Hematocrit 42.2 % (37.0-47.0); Hemoglobin 13.4 g/dL (12.0-15.0); Immature Granulocyte Absolute 0.05 K/mm3 (0.00-0.031); Immature Granulocyte Percent A 0.6 % (0-0.5); Mean Corpuscular HGB Conc 31.8 g/dl (32-36); Mean Corpuscular Hemoglobin 28.9 pg (26-34); Mean Corpuscular Volume 91.1 fl (80-100); Mean Platelet Volume 10.8 fl (7.4-10.4); Monocytes Absolute Auto 0.5 K/mm3 (0.1-0.6); Monocytes Percent Auto 6.1 % (2.6-8.5); Neutrophils Absolute Auto 5.8 K/mm3 (1.3-6.7); Neutrophils Percent Auto 66.3 % (45.5-73.1); Platelet Count Result 265 k/mm3 (150-375); Red Blood Count 4.63 M/mm3 (4.2-5.4); Red Cell Distribution Width 14.8 % (11.5-14.5); White Blood Count 8.7 K/mm3 (4.5-10.0)
[2024-09-21 11:09] LABS: Alanine Aminotransferase 18 U/L (6-35); Albumin Level 4.4 g/dL (3.5-5.1); Alkaline Phosphatase 120 U/L (38-126); Anion Gap 9 mmol/L (4-12); Aspartate Amino Transferase 26 U/L (14-36); Bilirubin,Total 0.4 mg/dL (0.2-1.3); Blood Urea Nitrogen 11 mg/dL (7-17); Calcium 9.2 mg/dL (8.4-10.2); Carbon Dioxide 22 mmol/L (22-30); Chloride 104 mmol/L (98-107); Cholesterol 232 mg/dL (0-200); Estimated Glomerular Filt Rate > 60; Glucose 121 mg/dL (65-110); HDL Direct 86 mg/dL; Potassium 4.2 mmol/L (3.4-5.0); Sodium 135 mmol/L (137-145); Total Protein 7.5 g/dL (6.3-8.2); Triglycerides 151 mg/dL (<150)
[2024-09-21 11:19] LABS: Hemoglobin A1C 6.1 % (<5.7); LDL Cholesterol Direct 109 mg/dL
[2024-09-21 11:32] LABS: Free T4 Free Thyroxine 1.18 ng/dL (0.78-2.19); Vitamin D 25 Hydroxy 19.8 ng/mL
== END 2024-09-21 10:16 | disposition home or self-care (01) ==
PROVIDERS: PCP Family Medicine; Visit Provider Nurse Practitioner Family
DX: E03.9 Hypothyroidism, unspecified (principal); E55.9 Vitamin D deficiency, unspecified; Z13.1 Encounter for screening for diabetes mellitus; Z13.6 Encounter for screening for cardiovascular disorders
CPT/HCPCS: 36415; 80053; 80061; 82306; 83036; 84439; 84443; 85025

== ENCOUNTER 2024-10-28 01:25 | Day surgery (SDC) | payer MEDICARE, MEDICAID, SELFPAY ==
--- OUTSIDE RECORDS SUMMARY | 2024-10-28 01:27 | XMS_ITS | Encounter Summary ---
Author Organization [facility] Address [address] [facility] [place] [address] Care Team Providers Care Plant Anatomist Name Role Phone Lashanda Garrison MD Primary Care Provider [phone] Yenny Vergara Primary Care Provider [phone] Encounter Details Date Type Department Care Team (Late st Contact Info) Description 12/02/2022 Telephone [facility] - Pulmonology [address] [place] [address], [place] [id number] Eleno Everett MD [address] [place] [address] OF PULMONARY/[place] [address] Social History Tobacco Use Types Packs/Day Years [...] and heating? 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 Eleno Everett Reason for call: Ms. Candice Canchola said she spoke to Dr. Everett yesterday re her 12/10/22appt. Dr. Evreett said the 12/10/22 appt was too soon [...] was told 02/26/23.. Patient Call Back number: [phone] documented in this encounter Plan of Treatment Upcoming Encounters Date Type Department Care Team (Late st Contact Info) Description 10/25/2025 1:00 PM CDT Office Visit [facility] - Neurology [address] [place] [address], [place] [address] Sebas Lopez MD [address] [place] [address] [place] [address] Moshe Lopez MD [address] [place] [address] documented as of this encounter Visit Diagnoses Not on filedocumented in this encounter Care Teams Plant Anatomist Relationship Specialty Start Date End Date Lashanda Garrison MD [address] [place] [address] PCP - General Family Medicine 09/16/22 10/26/24 Yenny Vergara [address] [place] [address] PCP - General Family Medicine 10/27/24 documented as of this encounter
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
--- OUTSIDE RECORDS SUMMARY | 2024-10-28 01:27 | XMS_ITS | Encounter Summary ---
Author Organization [facility] Address [address] [facility] [place] [address] Care Team Providers Care Cyber Security Engineer Name Role Phone Lashanda Garrison MD Primary Care Provider [phone] Yenny Vergara Primary Care Provider [phone] Reason for Visit * Reason Onset Date Comments MEDICATION REFILL 07/07/2023 Encounter Details Date Type Department Care Team (Late st Contact Info) Description 07/07/2023 Refill [facility] - Neurology [address] [place] [address], [facility] [place] [address] Moshe Lopez MD [address] [place] [address] [place] [address] MEDICATION REFILL Social History Tobacco [...] and heating? 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 Answer Date of Assessment Author No 06/26/2023 10:51 AM Marleni Petty RN * Is person blind or have serious difficulty seeing? Answer Date of Assessment Author No 06/26/2023 10:51 AM Marleni Ptety RN * Does person have serious difficulty [...] Office Visit [facility] - Neurology [address] [place] [address], [facility] [place] [address] Sebas Lopez MD [address] [place] [address] OF [place]OP[place] [address] Moshe Lopez MD [address] [place] [address] [place] [address] documented as of this encounter Visit Diagnoses Diagnosis Localization-related (focal) (partial) 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, not intractable, with status epilepticus (HCC) documented in this encounter Care Teams Cyber Security Engineer Relationship Specialty Start Date End Date Lashanda Garrison MD [address] [place] [address] [place] [address] PCP - General Family Medicine 09/16/22 10/26/24 Yenny Vergara [address] [place] [phone] PCP - General Family Medicine 10/27/24 documented as of this encounter
--- OUTSIDE RECORDS SUMMARY | 2024-10-28 01:27 | XMS_ITS | Encounter Summary ---
Author Organization [facility] Address [address] [facility] [place] [address] Care Team Providers Care Family Service Caseworker Name Role Phone Lashanda Garrison MD Primary Care Provider [phone] Yenny Vergara Primary Care Provider [phone] Encounter Details Date Type Department Care Team (Late st Contact Info) Description 08/07/2023 Telephone [facility] - Pulmonology [address] [place] [address], [place] [phone] Eleno Everett MD [address] [place] [address] OF PULMONARY/[place] [address] Social History Tobacco Use Types Packs/Day Years [...] and heating? Not hard at all 09/20/2022 [facility] of Occupat ional Health - Occupational Stress [...] place to sleep or slept in a m[facility]p (including now)? 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 Said the mass was too small and to check again in 6 months. Patient is asking if she should push her CT and office appt that is scheduled in September. Call back number is [phone] documented in this encounter Plan of Treatment Upcoming Encounters Date Type Department Care Team (Late st Contact Info) Description 10/25/2025 1:00 PM CDT Office Visit [facility] - Neurology [address] [place] [address], [place] [address] Sebas Lopez MD [address] [place] [address] OF [place] [address] Moshe Lopez MD [address] [place] [address] [place] [phone] documented as of this encounter Visit Diagnoses Not on filedocumented in this encounter Care Teams Family Service Caseworker Relationship Specialty Start Date End Date Lashanda Garrison MD [address] [place] [address] [place] [address] PCP - General Family Medicine 09/16/22 10/26/24 Yenny Vergara [address] [place] [phone] PCP - General Family Medicine 10/27/24 documented as of this encounter
--- OUTSIDE RECORDS SUMMARY | 2024-10-28 01:27 | XMS_ITS | Encounter Summary ---
Author Organization [facility] Address [address] [facility] [place] [address] Care Team Providers Care Painter Set Name Role Phone Lashanda Garrison MD Primary Care Provider [phone] Yenny Vergara Primary Care Provider [phone] Reason for Visit * Reason Onset Date Comments MEDICATION REFILL 05/15/2023 Encounter Details Date Type Department Care Team (Late st Contact Info) Description 05/15/2023 Refill [facility] - Neurology [address] [place] [address], [facility] [place] [address] Moshe Lopez MD [address] [place] [address] [place] [address] MEDICATION REFILL Social History Tobacco [...] and heating? 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 Extract Of Poison Cass Anaphylaxis Pended Medication Order: Requested Prescriptions Pending Prescriptions Disp Refills ??? clonazePAM (KlonoPIN) 0.5 MG tablet 30 tablet 1 Sig: Take 1 (one) tablet by mouth at bedtime CLOTH INSPECTOR documented in this encounter Plan of Treatment Upcoming Encounters Date Type Department Care Team (Late st Contact Info) Description 10/25/2025 1:00 PM CDT Office Visit [facility] Neurology [address] [place] [address], [facility] [place] [phone] Sebas Lopez MD [address] [place] [address] OF [place] [address] Moshe Lopez MD [address] [place] [address] [place] [phone] documented as of this encounter Visit Diagnoses Diagnosis Localization-related (focal) (partial) 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, not intractable, with status epilepticus (HCC) documented in this encounter Care Teams Painter Set Relationship Specialty Start Date End Date Lashanda Garrison MD [address] [place] [address] QUANG Christian [address] PCP - General Family Medicine 09/16/22 10/26/24 Yenny Vergara [address] [place] [place] [phone] PCP - General Family Medicine 10/27/24 documented as of this encounter
--- OUTSIDE RECORDS SUMMARY | 2024-10-28 01:27 | XMS_ITS | Encounter Summary ---
Author Organization [facility] Address [address] [facility] [place] [address] Care Team Providers Care Dual Rate Supervisor Name Role Phone Lashanda Garrison MD Primary Care Provider [phone] Yenny Vergara Primary Care Provider [phone] Reason for Visit * Reason Onset Date Comments MEDICATION REFILL 12/25/2020 Encounter Details Date Type Department Care Team (Late st Contact Info) Description 12/25/2020 Refill [facility] [address] [place] [address], [place] [address] Moshe Lopez MD [address] [place] [address] [place] [phone] MEDICATION REFILL Social History Tobacco Use Types [...] AM CDT 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 Gender Identity Female 02/02/2024 9:38 AM CDT [...] Office Visit [facility] Neurology [address] [place] [address], [place] [phone] Sebas Lopez MD [address] [place] [address] [place] [address] Moshe Lopez MD [address] [place] [address] [place] [address] documented as of this encounter Visit Diagnoses Diagnosis Partial symptomatic epilepsy with complex partial seizures, intractable, 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 [address] PCP - General Family Medicine 09/16/22 10/26/24 Yenny Vergara [address] [place] [phone] PCP - General Family Medicine 10/27/24 documented as of this encounter
--- OUTSIDE RECORDS SUMMARY | 2024-10-28 01:27 | XMS_ITS | Encounter Summary ---
Author Organization [facility] Address [address] [facility] [place] [address] Care Team Providers Care Parking Lot Attendant And Cashier Name Role Phone Lashanda Garrison MD Primary Care Provider [phone] Yenny Vergara Primary Care Provider [phone] Reason for Visit * Reason Onset Date Comments MEDICATION REFILL 09/14/2024 Encounter Details Date Type Department Care Team (Late st Contact Info) Description 09/14/2024 Refill [facility] - Pulmonology [address] [facility], [place] [address] Kirill Mae MD [address] [facility] PULMONARY DISEASE/[place] [address] MEDICATION REFILL Social History Tobacco [...] and heating? Not hard at all 09/20/2022 [facility] of Occupat ional Health - Occupational Stress [...] place to sleep or slept in a assisted (including now)? No 09/20/2022 Comments No Sex and Gender Information Value Date Recorded Sex Assigned at Female 02/02/2024 9:38 AM CDT Legal Sex Female 5:22 PM RAGMAN Gender Identity Female 02/02/2024 9:38 AM CDT [...] Description 10/25/2025 1:00 PM CDT Office Visit [facility] - Neurology [address] [place] [address], [facility] [place] [address] Sebas Lpoez MD [address] [place] [address] [place] [address] Moshe Lopez MD [address] [place] [address] [place] [address] documented as of this encounter Visit Diagnoses Not on filedocumented in this encounter Care Teams Parking Lot Attendant And Cashier Relationship Specialty Start Date End Date Lashanda Garrison MD [address] [place] [address] PCP - General Family Medicine 09/16/22 10/26/24 Yenny Vergara [address] [place] [phone] PCP - General Family Medicine 10/27/24 documented as of this encounter
--- OUTSIDE RECORDS SUMMARY | 2024-10-28 01:27 | XMS_ITS | Clinical Summary ---
Author Organization [facility] Address [address] [place] [address] Care Team Providers Care Pig Machine Operator Helper Name Role Phone Bette Spaulding CALENDER ROLL OPERATOR Primary Care Provider [phone] Social History Tobacco Use Types Packs/Day Years Used Date Smoking Tobacco: Never Assessed Comments Unknown Sex and Gender Information Value Date Recorded Sex Assigned at Not on file Legal Sex Female 9:45 PM ART PREPARATOR Gender Identity Not on file Sexual Orientation Not on file Last Filed Vital Signs Vital Sign Reading Time Taken Comments Blood Pressure 134/88 09/17/2017 1:11 PM CDT Pulse 88 09/17/2017 1:11 PM CDT Temperature - - Respiratory Rate - - Oxygen Saturation - - Inhaled Oxygen Concentration - - Weight 74.4 kg (164 lb) 09/17/2017 1:11 PM CDT Height 162.6 cm (5' 4) 09/17/2017 1:11 PM CDT Body Mass Index 28.15 09/17/2017 1:11 PM CDT Plan of Treatment Health Maintenance Due Date Last Done Comments Colorectal Cancer Screening Colonoscopy (10 Years) 1950 Hepatitis C 1967 DTaP, Tdap and Td Vaccines ( 1 - Tdap) 01/02/1968 Dexa Scan (General) 2014 Zoster Vaccines (2 of 3) 07/14/2014 05/19/2014 Pneumococcal Vaccine: 50+ Ye ars (2 of 2 - PCV) 05/19/2015 05/19/2014 COVID-19 Vaccine ( - 2023-2 5 season) 2023 RSV Immunization or 60+ Years (1 - 1-dose 75+ series) 01/02/2024 Meningococcal B Vaccine Aged Out No l onger eligible based on patient's age to complete this topic Meningococcal Vaccine Aged Out No joleen mona eligible based on patient's age to complete this topic RSV Immunizations Under 20 Months Aged Out No longer eligible based on patient's age to complete this topic Care Teams Pig Machine Operator Helper Relationship Specialty Start Date End Date Bette Spaulding FNP [address] [facility] [place] [address] PCP - General 05/21/16
--- OUTSIDE RECORDS SUMMARY | 2024-10-28 01:27 | XMS_ITS | Encounter Summary ---
Author Organization [facility] Address [address] [facility] [place] [address] Care Team Providers Care Dog Handler Or Trainer Name Role Phone Lashanda Garrison MD Primary Care Provider [phone] Yenny Vergara Primary Care Provider Reason for Visit * Reason Onset Date Comments MEDICATION REFILL 09/14/2024 Encounter Details Date Type Department Care Team (Late st Contact Info) Description 09/14/2024 Refill [facility] - Neurology [address] [place] [address], [facility] [place] [address] Moshe Lopez MD [address] [place] [phone] MEDICATION REFILL Social History Tobacco Use [...] and heating? 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 Gender Identity Female 02/02/2024 9:38 AM [...] Office Visit [facility] Neurology [address] [place] [address], [facility] [place] [phone] Sebas Lopez MD [address] [place] [address] [place] [address] Moshe Lopez MD [address] [place] [address] [place] [phone] documented as of this encounter Visit Diagnoses Diagnosis Localization-related (focal) (partial) 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, not intractable, with status epilepticus (HCC) documented in this encounter Care Teams Dog Handler Or Trainer Relationship Specialty Start Date End Date Lashanda Garrison MD [address] [place] [address] [place] [phone] PCP - General Family Medicine 09/16/22 10/26/24 Yenny Vergara [address] [place] [phone] PCP - General Family Medicine 10/27/24 documented as of this encounter
--- OUTSIDE RECORDS SUMMARY | 2024-10-28 01:27 | XMS_ITS | Encounter Summary ---
Author Organization [facility] Address [address] [place] [address] Care Team Providers Care Peanut Sorter Name Role Phone Lashanda Garrison MD Primary Care Provider [phone] Yenny Vergara Primary Care Provider [phone] Reason for Visit * Reason Onset Date Comments MEDICATION REFILL 12/23/2020 Encounter Details Date Type Department Care Team (Late st Contact Info) Description 12/23/2020 Refill [facility] [address] [place] [address], [place] [address] Moshe Lopez MD [address] [place] [address] [place] [phone] MEDICATION REFILL Social History Tobacco Use Types [...] AM CDT 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 Gender Identity Female 02/02/2024 9:38 AM CDT [...] Office Visit [facility] - Neurology [address] [place] [address], [place] [phone] Sebas Lopez MD [address] [place] [address] [place] [address] Moshe Lopez MD [address] [place] [address] [place] [phone] documented as of this encounter Visit Diagnoses Diagnosis Partial symptomatic epilepsy with complex partial seizures, intractable, 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 [address] PCP - General Family Medicine 09/16/22 10/26/24 Yenny Vergara [address] [place] [phone] PCP - General Family Medicine 10/27/24 documented as of this encounter
--- OUTSIDE RECORDS SUMMARY | 2024-10-28 01:27 | XMS_ITS | Encounter Summary ---
Author Organization [facility] Address [address] [facility] [place] [address] Care Team Providers Care Sap Bi Architect Name Role Phone Lashanda Garrison MD Primary Care Provider [phone] Yenny Vergara Primary Care Provider [phone] Reason for Visit * Reason Onset Date Comments MEDICATION REFILL 07/07/2023 Encounter Details Date Type Department Care Team (Late st Contact Info) Description 07/07/2023 Refill [facility] Neurology [address] [place] [address], [facility] [place] [address] Moshe Lopez MD [address] [place] [address] [place] [address] MEDICATION REFILL Social History Tobacco [...] hard at all 09/20/2022 [facility] of Occupat ional Health - Occupational Stress [...] place to sleep or slept in a long term (including now)? 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 Gender Identity Female 02/02/2024 9:38 AM CDT [...] Office Visit [facility] Neurology [address] [place] [address], [facility] [place] [phone] Sebas Lopez MD [address] [place] [address] [place] [address] Moshe Lopez MD [address] [place] [address] [place] [phone] documented as of this encounter Visit Diagnoses Diagnosis Localization-related (focal) (partial) 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, not intractable, with status epilepticus (HCC) documented in this encounter Care Teams Sap Bi Architect Relationship Specialty Start Date End Date Lashanda Garrison MD [address] [place] [address] [place] [phone] PCP - General Family Medicine 09/16/22 10/26/24 Yenny Vergara [address] [place] [phone] PCP - General Family Medicine 10/27/24 documented as of this encounter
--- OUTSIDE RECORDS SUMMARY | 2024-10-28 01:27 | XMS_ITS | Encounter Summary ---
Author Organization [facility] Address [address] [facility] [place] [address] Care Team Providers Care Practice Office Associate Name Role Phone Lashanda Garrison MD Primary Care Provider [phone] Yenny Vergara Primary Care Provider [phone] Reason for Visit * Reason Onset Date Comments MEDICATION REFILL 12/14/2020 Encounter Details Date Type Department Care Team (Late st Contact Info) Description 12/14/2020 Refill [facility] [address] [place] [address], [place] [address] Luis Carlos Caraballo MD [address] [place] [address] [place] [phone] MEDICATION REFILL Social History Tobacco Use Types [...] AM CDT 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 Gender Identity Female 02/02/2024 9:38 AM CDT [...] Description 10/25/2025 1:00 PM CDT Office Visit [facility] - Neurology [address] [place] [address], [place] [phone] Sebas Lopez MD [address] [place] [address] [place] [address] Moshe Lopez MD [address] [place] [address] [place] [phone] documented as of this encounter Visit Diagnoses Diagnosis Partial symptomatic epilepsy with complex partial seizures, intractable, 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 [address] PCP - General Family Medicine 09/16/22 10/26/24 Yenny Vergara [address] [place] [phone] PCP - General Family Medicine 10/27/24 documented as of this encounter
--- OUTSIDE RECORDS SUMMARY | 2024-10-28 01:27 | XMS_ITS | Clinical Summary ---
Author Organization [facility] Address [address] [place] [address] Care Team Providers Care Channel Installer Name Role Phone Yenny Vergara Primary Care Provider [phone] Source Comments [facility],non-owned Affiliates and Associated Physician Practices is amultiple site organization consisting of ambulatory clinics and hospital sitesin [place], [place], [place] and [place]. This disclosure is being madepursuant to the Care Everywhere program and may not contain all information available regarding this patient. 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, not intractable, with status epilepticus (HCC) Take 1 (one) tablet by mouth once daily 90 tablet 3 4 Active eslicarbazepine (Aptiom) 600 MG tabletIndication s:Localization-r elated (focal) (partial) 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, not intractable, with status epilepticus (HCC) Take 1 (one) tablet by mouth once daily 30 tablet 5 Active clonazePAM (KlonoPIN) 0.5 MG tabletIndication s:Localization-r elated (focal) (partial) 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, not intractable, with status epilepticus (HCC) TAKE 1 TABLET BY MOUTH EVERYDAY AT BEDTIME 31 tablet 5 5 Active Active Problems Problem Noted Date Diagnosed Date [...] 09/15/2024 Telephone [facility] Pulmonology [address] [place] [phone] Kirill Mae MD Appointment 09/14/2024 Refill [facility] [address] [place] [phone] Kirill Mae MD MEDICATION REFILL 09/14/2024 Refill [facility] - Neurology [address] [place] [phone] Moshe Lopez MD MEDICATION REFILL 09/13/2024 Refill [facility] Neu[facility] [address] [place] [phone] Moshe Lopez MD Refill Request 08/10/2024 Orders Only [facility] [address] [place] [phone] Moshe Lopez MD Localization-related (focal) (partial) 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, not intractable, with status epilepticus (HCC) 08/09/2024 Telephone [facility] Neurology [address] [place] [phone] Moshe Lopez MD Medication Management from Last [...] and heating? 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 Gender Identity Female 02/02/2024 9:38 AM CDT Sexual Orientation Not on file Last Filed Vital Signs Vital Sign Reading Time Taken Comments Blood Pressure 142/87 01/14/2024 11:03 AM CDT Pulse 88 01/14/2024 11:03 AM CDT Temperature 36.6 C (97.8 F) 06/26/2023 10:39 AM HIGH DENSITY PRESS OPERATOR Respiratory Rate 17 01/14/2024 11:03 AM CDT [...] Office Visit [facility] - Neurology [address] [place] [address], [facility] [place] [phone] Sebas Lopez MD [address] [place] [address] OF ORTHOPEDIC SURGERY [place], [place] [phone] Moshe Lopez MD [address] [place] [address] [place] [phone] Health Maintenance Due Date Last Done Comments [...] Tdap) 01/17/2018 01/18/2008, 01/18/2008 COVID-19 VACCINE ( - season) 2023 03/10/2022, 03/09/2022, 02/14/2021, Additional history exists Respiratory Syncytial Virus (RSV) Vaccine Pt: or over 60 yrs (1 - 1-dose 75+ series) 01/02/2024 DEPRESSION SCREENING 04/20/2024 MEDICARE AWV CALENDAR YEAR 2024 INFLUENZA VACCINE (#1) 2024 , 01/23/2022, 02/08/2020, Additional history exists HIB VACCINE [...] this topic Medical Devices Implanted Type Area Bisque Tile Burner Device Identifier Shelf Expiration Date Model / Serial / Lot Neville Healix Adv Br 6.5mm - [id number] Implanted:Qty: 1 on 11/13/2022 by Sebas Lopez MD at [facility] Right: Shoulder [employer] 06/17/2024 [id number] / [id number] / [id number] Healix Advance Sp Biocomposite Neville Tcp/Plla Absorable Neville Implanted:Qty: 2 on 11/13/2022 by Sebas Lopez MD at [facility] Right: Shoulder [employer] 01/17/2023 [id number] / [id number] / [id number] Insurance AETNA MEDICARE ADV MEDICAID - [place] AETNA MEDICARE ADV Advance Directives Documents on File Type Date Recorded 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
--- OUTSIDE RECORDS SUMMARY | 2024-10-28 01:27 | XMS_ITS | Encounter Summary ---
Author Organization [facility] Address [address] [facility] [place] [address] Care Team Providers Care Portable Machine Cutter Name Role Phone Lashanda Garrison MD Primary Care Provider [phone] Yenny Vergara Primary Care Provider [phone] Reason for Visit * Reason Onset Date Comments MEDICATION REFILL 03/05/2023 Encounter Details Date Type Department Care Team (Late st Contact Info) Description 03/05/2023 Refill [facility] - Neurology [address] [place] [address], [facility] [place] [address] Moshe Lopez MD [address] [place] [address] [place] [address] MEDICATION REFILL Social History Tobacco [...] and heating? Not hard at all 09/20/2022 [facility] [place] of Occupat ional Health - Occupational Stress [...] AM CDT Legal Sex Female 5:22 PM OUTPATIENT SERVICES DIRECTOR Gender Identity Female 02/02/2024 9:38 AM CDT [...] * Telephone Encounter - Viola Oleary - 03/05/2023 9:25 AM CST Refill Request [...] 1 (one) tablet by mouth at bedtime ATIENT SERVICES DIRECTOR documented in this encounter Plan of Treatment Upcoming Encounters Date Type Department Care Team (Late st Contact Info) Description 10/25/2025 1:00 PM CDT Office Visit [facility] - Neurology [address] [place] [address], [facility] [place] [address] Sebas Lopez MD [address] [place] [address] [place] [address] Moshe Lopez MD [address] [place] [address] [place] [phone] documented as of this encounter Visit Diagnoses Diagnosis Localization-related (focal) (partial) 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, not intractable, with status epilepticus (HCC) documented in this encounter Care Teams Portable Machine Cutter Relationship Specialty Start Date End Date Lashanda Garrison MD [address] [place] [address] PCP - General Family Medicine 09/16/22 10/26/24 Yenny Vergara [address] [place] [address] PCP - General Family Medicine 10/27/24 documented as of this encounter
--- OUTSIDE RECORDS SUMMARY | 2024-10-28 01:27 | XMS_ITS | Encounter Summary ---
Author Organization [facility] Address [address] [facility] [place] [address] Care Team Providers Care Card Scraper Name Role Phone Lashanda Garrison MD Primary Care Provider [phone] Yenny Vergara Primary Care Provider [phone] Reason for Visit * Reason Onset Date Comments MEDICATION REFILL 05/07/2023 Encounter Details Date Type Department Care Team (Late st Contact Info) Description 05/07/2023 Refill [facility] - Neurology [address] [place] [address], [place] [address] Moseh Lopez MD [address] [place] [address] [place] [address] MEDICATION REFILL Social History Tobacco [...] at all 09/20/2022 [facility] [place] of Occupat ional Health - Occupational Stress [...] place to sleep or slept in a senior living (including now)? 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 Refill Request Candice Canchola KAYKAY: 11/26/2022 NOV due: 05/2023 scheduled:05/2023 LRF: 04/07/2023 Qty Disp: 30 # of refills: 5 Allergies: Allergies Allergen Reactions ??? Extract Of Poison Cass Anaphylaxis Pended Medication Order: Requested Prescriptions Pending Prescriptions Disp Refills ??? eslicarbazepine (Aptiom) 600 MG tablet 30 tablet 5 Sig: Take 1 (one) tablet by mouth once daily MANAGER documented in this encounter Plan of Treatment Upcoming Encounters Date Type Department Care Team (Late st Contact Info) Description 10/25/2025 1:00 PM CDT Office Visit [facility] - Neurology [address] [place] [address], [place] [phone] Sebas Lopez MD [address] [place] [address] [place] [address] Moshe Lopez MD [address] [place] [address] [place] [phone] documented as of this encounter Visit Diagnoses Diagnosis Localization-related (focal) (partial) 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, not intractable, with status epilepticus (HCC) documented in this encounter Care Teams Card Scraper Relationship Specialty Start Date End Date Lashanda Garrison MD [address] [place] [address] [place] [address] PCP - General Family Medicine 09/16/22 10/26/24 Yenny Vergara [address] [place] [phone] PCP - General Family Medicine 10/27/24 documented as of this encounter
--- OUTSIDE RECORDS SUMMARY | 2024-10-28 01:27 | XMS_ITS | Data Portability ---
Author Organization [facility] AL[facility] Sagastume Address [address] [place] [address] Care Team Providers Care Coding Assistant Name Role Phone ANA LILIA HOFFMANN Primary Care Provider Unavailabl e Assessment No assessment recorded. Plan of Treatment Reminders Order Date Submit Date Provider Last Modified By Organization Details Last Modified Time Details Appointments None recorded . Lab hemoglob in, qualitat bran, stool by immunolo gic method 2018 019 B[facility], [address] [facility] [facility], [address], [place], [address], 9 15:52:30 T4, free, serum 2014 015 [facility], [address] [place] [address], [address], [place], [address], 6 09:55:40 lipid panel, serum 2014 015 [email or web address] [facility], [address] [place] [address], [address], [place], [address], 6 10:12:56 TSH, serum or plasma 2014 015 [email or web address] [facility], [address] [place] [address], [address], [place], [address], 6 10:13:20 Referral cardiolo gist referral 2017 019 [facility], [address] [place] [address] [address], [place], [address], 9 16:05:[address] referral 2017 018 ATHE[facility] Not available 9 16:10:21 neurolog ist referral 2017 018 [facility] Not available 9 13:17:[address] referral - History of Turpin' s esophagu s and H. pylori. 2014 015 [facility] Barbara Arguello MD, [address], [place], [address], 5 11:05:23 Procedures trans-th oracic echocard iogram (TTE) (PROC) 2017 019 [facility] (Imaging), [address] [place], [address], 9 17:21:35 treadmil l nuclear stress test (PROC) 2017 019 [email or web address] Not available 9 09:55:43 Surgeries None recorded . Imaging MAMMO, screenin g, digital, bilatera l [address] [facility] (Imaging), [address] [place], [address], 9 16:20:34 MAMMO, screenin g, bilatera l 2017 018 [facility] (Imaging), [address] [place], [address], 9 11:27:05 echo exam, 2D - Had atrial enlargem ent on EKG. 2014 015 [email or web address] [facility] ([facility]), [address] [facility], [place], [address], 5 14:33:48 Medication Orders famotidi ne 40 mg tablet 2018 019 [facility]armacy #2510, [address] [place], [address], 9 15:52:26 levothyr oxine 125 mcg tablet 2018 019 INTERFACE [facility]armacy #2510, [address] [place], [address], 9 15:52:27 clonazep am 0.5 mg tablet 2018 019 [facility]armacy #2510, [address] [place], [address], 9 11:19:48 Aptiom 400 mg tablet 2018 019 [facility]Pharmacy #2510, [address] [place], [address], 9 15:52:27 oxcarbaz epine 300 mg tablet 2017 018 [facility], [address] [place], [place], [id number], 9 15:17:37 clonazep am 0.5 mg tablet 2017 018 [email or web address] [facility], [address] [place], [place], [id number], 8 12:34:26 levothyr oxine 125 mcg tablet 2017 018 [facility]23460, [address] [place], [place], [id number], 8 11:45:48 temazepa m 30 mg capsule 2014 015 [facility]43062, [address] [place], [place], [id number], 9 15:16:45 Patient TargetsNo targets recorded. Patient Instructions Encounter Date Encounter Id Patient Instructions Last Modified By Organization Details Last Modified Time 06/07/2014 [id number] anxiety disorder : care instructions [email or web address] Not available 06/08/2014 09:33:53 learning about anxiety disorders [email or web address] Not available 06/08/2014 09:33:53 hypothyroidism: care instructions [email or web address] Not available 06/08/2014 09:33:53 02/25/2018 [id number] epilepsy: care instructions Not available 02/25/2018 15:59:13 learning about healthy weight Not available 02/28/2018 18:03:21 04/15/2018 [id number] mammogram: about this test [email or web address] Not available 04/15/2018 11:45:42 epilepsy: care instructions [email or web address] Not available 04/15/2018 11:45:43 10/18/2018 [id number] mammogram: about this test [email or web address] Not available 10/18/2018 15:52:24 epilepsy: care instructions [email or web address] Not available 10/18/2018 15:52:24 Reason for Referral History of Turpin's esophag us and H. pylori. Referring Physician: Michael Solorzano, Internal Medicine, Encounter Date: 06/07/2014 Neurologist Referral for Sei zure disorder Referring Physician: Ana Lilia Hoffmann [facility] Medicine, Encounter Date: 02/25/2018 Family Law Specialist Referral for Abdominal bloating Referring Physician: Ana Lilia Hoffmann [facility] Medicine, Encounter Date: 02/25/2018 Scout Referral for El ectrocardiogram abnormal Referring Physician: Ana Lilia Hoffmann [facility] Medicine, Encounter Date: 04/15/2018 Results Created Date Observation Date Name Description Value Unit Range Abnormal Flag Note LastModifiedBy Organization Detail LastModifiedTime 11/04/1911/10/2018 fecal occul t blood , immun oassa y, stool occult blood, fecal, ia Negati ve negati ve Not Available [facility] ([facility]) [address] [facility], [place], [address], 11/11/2018 10:37:23 06/08/19 15 04/02/2014 imagi ng/di agnos tic resul t No observ ation record ed. [facility] Not Available 2014 18:07:39 09/25/19 19 09/20/2018 trans -thor acic echoc ardio gram (TTE) (PROC ) No observ ation record ed. [facility] (Imaging) [address] [place] [address], [place], [address], 09/27/2018 15:49:23 06/19/19 20 06/19/2019 CT, brain , w/o contr ast No observ ation record ed. [address] [address], [place], [address], 06/28/2019 09:38:20 06/19/19 20 06/19/2019 XR, chest , 2 view No observ ation record ed. [facility] (Lab) [address] [place] [address], [address], 06/28/2019 09:38:20 06/20/19 20 06/19/2019 CT, abdom en + pelvi s, w/ contr ast No observ ation record ed. [address] [address], [place], [address], 06/28/2019 09:38:21 06/20/19 20 06/20/2019 MRI, brain + brain stem, w/wo contr ast No observ ation record ed. [address] [address], [place], [address], 06/28/2019 09:38:21 06/22/19 20 06/20/2019 elect roenc ephal ogram No observ ation record ed. [address] [address], [place], [address], 06/28/2019 09:38:21 Result Notes None recorded. Problems Name Problem SNOMED Code Status Onset Date Resolution Date Notes Provider Name and Address Organization Details Recorded Time Seizure disorder 039627468 Active 2017 Paula Castillo MA null, [facility] 8 15:25:58 Gastroesophag eal reflux disease 191156572 Active 2018 Paula Castillo MA null, [facility] 9 09:54:34 Essential hypertension 35275547 Active Michael Solorzano MD Attn: Accounting ,[address] [place], [address] , [facility] 5 18:47:42 Anxiety disorder 017040746 Active Michael Solorzano MD Attn: Accounting ,[address] [place], [address] , [facility] 5 18:47:42 Hypothyroidis m 42788308 Active Michael Solorzano MD Attn: Accounting ,[address] [place], [address] , [facility] 5 18:47:42 Problem Notes None recorded. Procedures Surgical History Date Name Laterality Status Provider Name and Address Organization Details Recorded Time 04/20/18 95 Caesarean Section completed Nereida Prajapati RN [facility] 03/17/2014 10:15:11 04/20/18 65 Appendectomy completed Nereida Prajapati RN [facility] 03/17/2014 10:15:11 tonsillectomy completed Paula Castillo MA [facility] 02/25/2018 15:27:47 Xcapsl ctrc rmvl cplx wo ecp completed Paula Castillo MA [facility] 02/25/2018 15:28:20 Gastrointestinal Surgery completed Paula Castillo MA [facility] 02/25/2018 15:28:38 Imaging Results None recorded. Procedure [...] Available Not Available Not Available Fluzone High-Dose 7434-5199 (PF) 180 mcg/0.5 mL intramuscul ar syringe 10/18 completed Not Available Not Available Not Available Fluzone High-Dose 9128-4278 (PF) 180 mcg/0.5 mL intramuscul ar syringe 10/18 completed Not Available Not Available Not Available Shingrix (PF) 50 mcg/0.5 mL intramuscul ar suspension, kit 10/18 completed Not Available Not Available Not Available Fluad 2018- 65yr up(PF)45 mcg(15 mcgx3)/0.5 mL intramuscul ar syringe 10/18 completed Not Available Not Available Not Available Vitals Date Recorded Respiratory rate Oxygen saturation Oxygen saturation in Arterial blood by Pulse oximetry Body weight Heart rate Body mass index (BMI) Body height Body temperature Systolic And Diastolic Provider Name and Address Organization Details Last Updated DateTime 5 14 /min 100 % 100 % 91774.6 3862 g 74 /min 23.8 kg/m2 154.94 cm 97.7 [degF] 120/86 mm[Hg] Ivett Trammell MA [facility] 5 17:48:18 Date Recorded Body height Body mass index (BMI) Body weight Body temperature Oxygen saturation Oxygen saturation in Arterial blood by Pulse oximetry Heart rate Systolic And Diastolic Provider Name and Address Organization Details Last Updated DateTime 9 158.75 cm 29 kg/m2 90106.4 7 g 98.5 [degF] 97 % 97 % 107 /min 140/90 mm[Hg] Cherry Gatica MA [facility] 9 15:13:27 Date Recorded Body height Body mass index (BMI) Body weight Body temperature Oxygen saturation Oxygen saturation in Arterial blood by Pulse oximetry Heart rate Respiratory rate Systolic And Diastolic Provider Name and Address Organization Details Last Updated DateTime 8 158.75 cm 31 kg/m2 70018.5 9 g 98.3 [degF] 98 % 98 % 73 /min 18 /min 128/74 mm[Hg] Paula Casitllo MA [facility] 8 15:25:03 Date Recorded Body height Body mass index (BMI) Body weight Body temperature Oxygen saturation Oxygen saturation in Arterial blood by Pulse oximetry Heart rate Systolic And Diastolic Provider Name and Address Organization Details Last Updated DateTime 8 158.75 cm 31 kg/m2 60120.6 9 g 98.8 [degF] 97 % 97 % 76 /min 110/72 mm[Hg] Paula Castillo MA [facility] 8 11:15:42 Social History Question Answer Notes LastModified by Organizat ion Details LastModified Time Tobacco Smoking Status Never Smoker Ivett Trammell MA null, [place] - 06/07/2014 17:48:18 What Is Your Level Of [...] Skin Problems N Anemia N Heart Attack ([place]) N Anxiety Disorder N Diabetes N Muscle, [...] SNOMED-CT Code Diagnosis ICD10 Code Diagnosis Note [id number] Michael Solorzano MD [facility] ([facility]) [address] [place] [address] 06/07/2014 14:31:36 06/07/2014 18:49:25 Essential hypertension 45493299 Anxiety disorder 304522472 Hypothyroidism 64172403 [id number] Ana Lilia Hoffmann MD [facility] [address] [place] [address] 02/25/2018 14:41:50 03/01/2018 12:08:03 Seizure disorder 604208468 G40.909 repeated hospitaliz ations for seizures recently; does well on 3 pills but wants to get off Keppra. Abdominal bloating 86999 9008 R14.0 Body mass index 30+ - obesity 077677113 Z68.31 discussed low fat, low carb diet, and encouraged exercise. Standardiz ed adult depression screening tool completed 0462514430 73208 Z13.89 screening indicates major depression ; will monitor and start medication s at next visit if not improving. Med list indicates she is on benzodiaze pines and paroxetine . [id number] Ana Lilia Hoffmann MD [facility] [address] [place] [address] 04/15/2018 10:47:03 04/21/2018 11:27:04 Seizure disorder 598895293 G40.909 Hypothyroidism 95402138 E03.9 Screening mammography 24 556499 Z12.31 Electrocar diogram abnormal 407701594 R94.31 [id number] Ana Lilia Hoffmann MD [facility] [address] [place] [address] 10/18/2018 14:39:30 10/29/2018 08:07:57 [facility] 93874307 G40.909 [facility] 71751095 E03.9 Gastroesop hageal reflux disease without esophagitis 664406221 K21.9 Screening mammography 24 416752 Z12.31 Screening for malignant neoplasm of colon 478768222 Z12.11 Health Concerns Section Related Observation LastModified by Organization Detai ls LastModified Time None Recorded Concern Status LastModified by Organization Details LastModified Time None Recorded Advance Directives Directive None Recorded Payers Insurance Date Sequence Insurance Name Policy Number Policy Adrian Covered Member ID Adrian Member ID Guarantor Name 06/01/2018 1 [facility] (MEDICARE REPLACEMENT HMO) Candice Vitt [id number] Candice Vitt 09/20/2018 1 [facility] (MEDICARE REPLACEMENT HMO) [id number] Candice E Vitt [id number] Candice Vitt 02/25/2018 1 [place] Candice E Vitt [id number] Candice Vitt 06/07/2014 1 [facility] (MEDICAID HMO) Candice Vitt [id number] Candice Vitt 10/18/2018 [place] [facility] Candice E Vitt [id number] Candice Vitt 12/25/2017 2 [place] WHEN [place]ICARE OR MEDICARE REPLACEMENT PRIMARY) Candice Vitt [id number] Candice Vitt 10/29/2018 1 [facility] (MEDICARE REPLACEMENT HMO) Candice Vitt [id number] Candice Vitt Notes Date Note Type Note [...] under the care of a neurologist in [place] and is improving, but still has seizures and wants her medications to be modified. Ana Lilia Hoffmann MD Attn: Accounting,[address] [facility], [place], [address], [facility] 02/28/2018 18:07:55 8 text/html Coronary Artery Disease F/UReported bypatient.Severity:symptoms are worsening;chest discomfort with household activities/yard work Context:non-smoker Associated Symptoms:chest pain with exertion;dyspnea with exertion;sweats;nausea;unde r stressNotes:Patient was advised at ER that she needed a stress test and echocardiogram.ThyroidRepor sean bypatient.Quality:worsening Severity:moderate Duration:constant Onset/Timing:worse; still present Context:low thyroid levels Modifying Factors:medication Exerciseno exercise Associated Symptoms:difficulty swallowingNotes:Pt was at [facility] ER department recently for seizure like symptoms she does currently take medication for seizures. While there pt had labs drawn pts thyroid which she is medicated for came back too low. May need to increase patients dosage of medication to restabilize level of thyroid in her system. Pt is following up on her seizure disorder and most recent ER stay at [facility]. Pt thinks she is experiencing allergic reactions [...] Ana Lilia Hoffmann MD Attn: Accounting,[address] [place], [address], [facility] 04/18/2018 17:37:59 9 text/html Reflux/GERDReported bypatient.Symptomsno difficulty [...] Ana Lilia Hoffmann MD Attn: Accounting,[address] [place], [address], [facility] 10/29/2018 00:30:28 OBGyn Episode No OBEpisode recorded.
[2024-10-28 08:22] VITALS: BP 179/82; PULSE 85; RESP 20; TEMP 36.1; O2SAT 98; BMI 30.9
[2024-10-28] MEDS: LACTATED RINGERS 1,000 ML 150 ML IV CONT (08:37)
[2024-10-28 08:50] VITALS: BP 135/68
--- NOTE | 2024-10-28 08:55 | WPDHPUPDATE1 ---
History and Physical Update Update Date/Time: 10/28/24 08:55 History and Physical has been reviewed, including an updated exam of the patient. There are NO changes in the patient's condition. Risks, benefits, and alternatives have been discussed and questions answered. Patient agrees to proceed with procedure.
--- NOTE | 2024-10-28 08:57 | P.PNAN_ITS ---
Anes - Initial Pre Proc Eval Procedure: Operation Date: 10/28/24 09:30 Proposed Procedures p Esophagogastroduodenoscopy - Prabhjot Subramanian MD Date/Time: 10/28/24 08:57 Surgeon: Prabhjot Subramanian MD Pre Op Diagnosis: Abdominal distension (gaseous), GERD Patient Data Age: 74 Gender: F Height: 1.63 m Weight: 81.6 kg Last Vital Signs Temp 36.1 C L 10/28/24 08:22 Pulse 85 10/28/24 08:22 Resp 20 10/28/24 08:22 BP 135/68 10/28/24 08:50 Pulse Ox 98 10/28/24 08:22 O2 Del Method Room Air 10/28/24 08:22 Allergies Allergy/AdvReac Type Severity Reaction Status Date / Time poison kasi extract Allergy Mild RASH Verified 10/28/24 08:20 Home Medications ?Medication ?Instructions ?Recorded ?Confirmed ?Type clonazepam 0.5 mg tablet (Klonopin) 0.5 mg PO HS PRN Insomnia 06/20/19 10/17/24 History eslicarbazepine 400 mg tablet 600 mg PO DAILY 06/20/19 10/28/24 History (Aptiom) levothyroxine 125 mcg tablet 125 mcg PO DAILY 06/20/19 10/28/24 History (Synthroid) pantoprazole 40 mg tablet,delayed 40 mg PO DAILY 06/20/19 10/28/24 History release Patient hx anesthesia problems: none Family hx anesthesia problems: none Results Review: All pre-operative results and documents have been reviewed as part of the pre- operative evaluation. [facility] Past Medical History Medical History Barretts esophagus GERD (gastroesophageal reflux disease) Abdominal bloating Anxiety Hypothyroidism Arthritis Hiatal hernia Diverticulitis History of gastroesophageal reflux (GERD) Seizures Cataracts, bilateral Surgical History Surgical History Previous back surgery History of section History of tubal ligation History of appendectomy History of tonsillectomy Family History Family History Sibling Family history of multiple sclerosis Family history of malignant neoplasm of stomach Family history of lung cancer Father Cerebrovascular accident Mother Family history of heart disease in male family member before age 55 Social History Social History Smoking status: Never smoker Second hand tobacco smoke exposure: No Smoking end date: 04/20/1963 Alcohol intake: current Alcohol use details: occasionally Substance use: never Substance use type: does not use Do You Feel Safe in your Home?: Yes Lack of Transportation: No Lack of Food: Never True Current Housing: I Have Housing Concerned About Future Housing: No Difficulty Paying Gas/Electric Bills: No Difficulty Paying for Meds: No Currently Unemployed: No Education: Associate Degree Difficulty w/ Childcare or Family Care: No Living arrangements: alone Gender identity (if verbalized by the patient): Female Spiritual care concerns: No Agree to blood products: Yes Anes - Eval Final PreProcedure Day of Procedure 10/28/24 08:57 Patient weight: obese Heart: regular rate and rhythm Lungs: clear to auscultation Airway: Mallampati scale class II Neurological: alert and oriented Last oral intake: >/= 8 hours ASA classification: III Emergent: no Anesthetic plan: proceed Anesthesia type and monitoring: general GIVS and standard monitoring Results Review: All pre-operative results and documents have been reviewed as part of the pre- operative evaluation. Informed Consent: The patient's anesthetic plan and its attendant risks and benefits were discussed with the patient/family/POA. Questions were solicited and answers provided to the satisfaction of the patient/family/POA.
--- NOTE | 2024-10-28 09:05 | S_PTH ---
PATIENT: Candice Canchola LOC: [facility] Luu#:[id number] AGE/SX: 74/F ROOM: RE10/28/[address]: Prabhjot Subramanian MD : 1950 BED: DIS: 10/28/2024 SPEC #: [id number] RECD: 10/28/24 10:17 STATUS: NOEMY REGuru #: [id number] SHIREEN: 10/28/24 09:[address]: Prabhjot Subramanian DEPT: [facility] Surgical RECD BY: Zoe Fong ENTERED: 10/28/24 10:18 SP TYPE: Surgical OTHR DR: Yenny Vergara, [employer] Tissues: A - Esophageal Biopsy Procedures: Hematoxylin and Eosin Stain Gross and Microscopic Level 4
[2024-10-28 09:13] VITALS: BP 112/56; PULSE 72; RESP 27; O2SAT 98
[2024-10-28 09:21] VITALS: BP 120/65; PULSE 76; RESP 16; O2SAT 100
[2024-10-28 09:32] VITALS: BP 130/60; PULSE 68; RESP 26; O2SAT 100
== END 2024-10-28 10:16 | disposition home or self-care (01) ==
PROVIDERS: PCP Nurse Practitioner Family; Referring Provider Nurse Practitioner Family; Visit Provider Internal Medicine Gastroenterology
PROC: 0DJ08ZZ Inspection of Upper Intestinal Tract, Via Natural or Artificial Opening Endoscopic (ICD-10-PCS; CPT 43239; principal; 2024-10-28 09:30)
DX: K21.9 Gastro-esophageal reflux disease without esophagitis (principal); K22.70 Barrett's esophagus without dysplasia; E03.9 Hypothyroidism, unspecified; F41.9 Anxiety disorder, unspecified; R56.9 Unspecified convulsions; M19.90 Unspecified osteoarthritis, unspecified site; E66.9 Obesity, unspecified; Z68.30 Body mass index [BMI] 30.0-30.9, adult; Z98.890 Other specified postprocedural states; Z98.51 Tubal ligation status; Z98.1 Arthrodesis status; Z87.19 Personal history of other diseases of the digestive system; Z80.1 Family history of malignant neoplasm of trachea, bronchus and lung; Z80.0 Family history of malignant neoplasm of digestive organs; Z82.49 Family history of ischemic heart disease and other diseases of the circulatory system
CPT/HCPCS: 43239; 88305; J2003; J2704; J7120